=== PATIENT | male | born 1945 | race Caucasian/White ===

== ENCOUNTER → 2017-10-29 11:39 | Outpatient (CLI) | payer MEDICARE, SELFPAY | PROVIDERS: Family Provider Family Medicine; PCP Family Medicine; Visit Provider Physician Assistant Medical | DX: R07.9 Chest pain, unspecified (principal) | CPT/HCPCS: 36415; 84484 ==

== ENCOUNTER 2017-10-31 02:18 | Observation (INO) | payer MEDICARE, SELFPAY ==
[2017-10-31] VITALS (14 sets, daily range): BP systolic 115–173; BP diastolic 55–92; PULSE 42–85; RESP 14–16; TEMP 36.7–36.9; O2SAT 93–98; BMI 29.9; BMI 30.1
--- NOTE | 2017-10-31 02:36 | US_ITS ---
STUDY: ABDOMINAL ULTRASOUND - RIGHT UPPER QUADRANT REASON FOR VISIT: Male, 72 years old. .Normal pain. TECHNIQUE: Ultrasound evaluation of the right upper quadrant was performed with real-time and static fulton-scale imaging. TECHNICAL QUALITY: Adequate. COMPARISON: Report of renal ultrasound May 05, 2010. FINDINGS: Liver: The liver measures 16.3 cm. There is increased echogenicity consistent with mild fatty infiltration. The bile ducts are within normal limits. There is hepatic color flow. The direction of portal flow is hepatopetal. There is no demonstrated mass lesion. Gallbladder: Normal distended gallbladder from the images provided. The gallbladder wall measures 4 mm. There is a negative sonographic Lopez's sign. There is no pericholecystic fluid. There are no gallstones. Common Bile Duct (C.B.D.): The common bile duct measures 4 mm. Pancreas: Pancreas not well-visualized due to overlying bowel gas. Patient has not eaten for over 6 hours. Right Kidney: Normal size of the right kidney. The right kidney measures 12.4 cm. Normal renal cortex. The right cortex measures 1.4 cm. There is no demonstrated renal mass or cyst. There is no right hydronephrosis. US/Gallbladder IMPRESSION: Minimal gallbladder wall thickening otherwise normal gallbladder. Possible fatty liver. Pancreas not well visualized. Electronically Signed: Tera Barreto MD at 5:02 EDT , Service support ,
--- NOTE | 2017-10-31 02:37 | EKG12_ITS ---
Test Reason : CHEST/BACK PAIN Blood Pressure : / mmHG Vent. Rate : 051 BPM Atrial Rate : 051 BPM P-R Int : 184 ms QRS Dur : 104 ms QT Int : 436 ms P-R-T Axes : 014 042 009 degrees QTc Int : 401 ms Sinus bradycardia Otherwise normal ECG Confirmed by ANDRESSA KRUEGER, NICOLE ([id number]), web content editor AMINA LILLY ([id number] on 11/01/2017 2:56:18 PM Referred By: Nay Isbell Confirmed By:NICOLE CRISOSTOMO MD
--- NOTE | 2017-10-31 02:55 | RAD_ITS ---
STUDY: X-RAY CHEST REASON FOR EXAM: Male, 72 years old. Chest and abdominal pain. TECHNIQUE: PA and lateral chest. COMPARISON: December 02, 2014. FINDINGS: The lungs are clear and expanded. There is no demonstrated pleural abnormality. Normal size heart. Normal mediastinum and sonal. Normal visualized pulmonary arteries. Normal visualized aortic arch and descending thoracic aorta. Normal visualized thoracic spine. Normal visualized ribs, clavicles, and shoulders. There is no demonstrated abnormality of the visualized soft tissue structures of the upper abdomen. RAD/Chest PA and Lateral IMPRESSION: Stable chest, no acute cardiopulmonary disease. Electronically Signed: Tera Barreto MD at 3:52 EDT , Service support ,
[2017-10-31 03:15] LABS: Absolute Lymphocyte Count 1.13 X10^3/ul (0.83-4.51); Absolute Neutrophil Count 3.4 X10^3/uL (2.0-7.7); Basophil# 0.02 X10^3/uL; Basophil% 0.4 % (0-1); Eosinophil# 0.07 X10^3/uL; Eosinophils% 1.3 % (0-5); Hematocrit 43.2 % (40-54); Hemoglobin 14.4 g/dl (13.0-16.5); Lymphocyte # 1.13 X10^3/ul (4.0); Lymphocyte % 21.2 % (19-41); Mean Corp Hgb Conc 33.3 g/gl (32-36); Mean Corpuscular Hgb 28.8 pg (27.0-32.0); Mean Corpuscular Volume 86.4 fL (80-94); Mean Platelet Vol. 10.2 fl (6.2-12.0); Monocyte# 0.66 X10^3/uL; Monocyte% 12.4 % (0-10); Neutrophil # 3.43 X10^3/uL (2.7-7.7); Neutrophil % 64.3 % (47-70); Platelet Count 168 K/mm3 (150-450); RBC Distribution Width SD 43.6 fl (35.1-43.9); White Blood Count 5.3 K/mm3 (4.4-11.0)
[2017-10-31 03:21] LABS: POSITIVE COUNT NO; POSITIVE DIFFERENTIAL NO; POSITIVE MORPHOLOGY NO
[2017-10-31 03:29] LABS: ALB/GLOB Ratio 0.9 RATIO (0.9-2.4); AST(SGOT) 12 U/L (15-37); Alanine Aminotransfer ALT/SGPT 22 U/L (16-61); Albumin, Serum 3.2 g/dL (3.2-5.0); Alkaline Phosphatase 89 U/L (45-117); Anion Gap 8 (5-15); BUN 20 mg/dL (7-18); BUN/Creat Ratio 20.4 RATIO (10-20); Calcium,Total 8.1 mg/dL (8.5-10.1); Chloride 109 mmol/L (98-107); Creatinine, Serum 0.98 mg/dL (0.70-1.30); EST Glomerular Filtration Rate 80 mL/min (>60); Est Glom Filt Rate - Afr Amer 97 mL/min (>60); Estimated Creatinine Clearance 69.14 ml/min; Globulin 3.6 g/dL (2.2-4.2); Glucose 135 mg/dL (74-106); Lipase 323 U/L (73-393); Potassium 3.4 mmol/L (3.5-5.1); Protein, Total 6.8 g/dL (6.4-8.2); Sodium Level 143 mmol/L (136-145)
[2017-10-31] MEDS: Morphine 4 MG/ML Syringe IV (03:55)
[2017-10-31] MEDS: Ondansetron 4 MG/2 ML Vial IV (03:55)
--- NOTE | 2017-10-31 05:25 | ED.VISSUMM ---
- ER Visit Summary Date of Service: 10/31/17 Chief Complaint: Abdominal pain and chest pain History of Present Illness: The patient is a 72 M who presents with abdominal pain. Intermittently he has been having epigastric and right upper quadrant abdominal pain for about 1 week. 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 At that time he also mentioned bilateral neck pain and dyspnea on exertion. They were concerned that his pain may be due to cardiac ischemia. They had recommended that he be evaluated in the emergency department but the patient reviews actually checked her troponin and set up for an outpatient stress test. Tonight he notes 2 hours of severe epigastric and right upper quadrant and right lower chest pain. This radiates through to the back. He also complains of bilateral neck pain. He states that he does have some mild associated shortness of breath as well as nausea but no vomiting or diarrhea. She is concerned this may be related to his gallbladder. Physical Examination: Blood pressure 173/74. Vitals otherwise unremarkable Moist mucous membranes Heart regular rate and rhythm Lungs are clear Abdomen soft nondistended he does have some epigastric and right upper quadrant tenderness no guarding no rebound no Lopez's sign Alert Test Results: EKG shows sinus rhythm at a rate of 51. CBC BMP unremarkable. Hepatic function lipase and troponin all normal. Chest x-ray shows no acute process. Right upper quadrant ultrasound shows minimal gallbladder wall thickening otherwise normal. Emergency Department Course and Treatment: My clinical suspicion based on the description of patient's symptoms is that this is more likely related to gastrointestinal pathology. I did obtain laboratory studies and right upper quadrant ultrasound which shows minimal wall thickening but was otherwise unremarkable. This does not definitively show that the patient's symptoms are related to gallbladder pathology. Given that there was also concern for potential cardiac ischemia I felt the most appropriate management for further workup would be hospitalization and further diagnostic testing plus possible surgical and/or cardiology consultation. Patient to be discussed with the hospitalist and admitted. Treatment Plan: [] Disposition: Admit Impression: Abdominal pain Chest pain This note was generated with [employer] dictation software. It may contain incorrect words, spelling, and punctuation that were not noted in review of the chart prior to signing ED Disposition - Plan for ED Patient: Chief Complaint: Abd Pain Referrals: Stepan Mcgraw MD [Primary Care Provider] -
--- NOTE | 2017-10-31 05:29 | ED.DCSUM_ITS ---
- ER Visit Summary Date of Service: 10/31/17 Chief Complaint: Abdominal pain and chest pain History of Present Illness: The patient is a 72 M who presents with abdominal pain. Intermittently he has been having epigastric and right upper quadrant abdominal pain for about 1 week. 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 At that time he also mentioned bilateral neck pain and dyspnea on exertion. They were concerned that his pain may be due to cardiac ischemia. They had recommended that he be evaluated in the emergency department but the patient reviews actually checked her troponin and set up for an outpatient stress test. Tonight he notes 2 hours of severe epigastric and right upper quadrant and right lower chest pain. This radiates through to the back. He also complains of bilateral neck pain. He states that he does have some mild associated shortness of breath as well as nausea but no vomiting or diarrhea. She is concerned this may be related to his gallbladder. Physical Examination: Blood pressure 173/74. Vitals otherwise unremarkable Moist mucous membranes Heart regular rate and rhythm Lungs are clear Abdomen soft nondistended he does have some epigastric and right upper quadrant tenderness no guarding no rebound no Lopez's sign Alert Test Results: EKG shows sinus rhythm at a rate of 51. CBC BMP unremarkable. Hepatic function lipase and troponin all normal. Chest x-ray shows no acute process. Right upper quadrant ultrasound shows minimal gallbladder wall thickening otherwise normal. Emergency Department Course and Treatment: My clinical suspicion based on the description of patient's symptoms is that this is more likely related to gastrointestinal pathology. I did obtain laboratory studies and right upper quadrant ultrasound which shows minimal wall thickening but was otherwise unremarkable. This does not definitively show that the patient's symptoms are related to gallbladder pathology. Given that there was also concern for potential cardiac ischemia I felt the most appropriate management for further workup would be hospitalization and further diagnostic testing plus possible surgical and/or cardiology consultation. Patient to be discussed with the hospitalist and admitted. Treatment Plan: [] Disposition: Admit Impression: Abdominal pain Chest pain This note was generated with [employer] dictation software. It may contain incorrect words, spelling, and punctuation that were not noted in review of the chart prior to signing ED Disposition - Plan for ED Patient: Chief Complaint: Abd Pain Referrals: Stepan Mcgraw MD [Primary Care Provider] -
--- NOTE | 2017-10-31 06:04 | PCM.HP.STD ---
Problem List (1) Chest pain Status: Acute (2) Essential (primary) hypertension Status: Chronic (3) History of pericarditis Status: Chronic (4) Obstructive sleep apnea Status: Chronic (5) History of prostate surgery Status: Resolved History of Present Illness Date of Admission: 10/31/17 Chief Complaint: Chest pain The patient is a 72 year old male w/ h/o HTN. ANJANA and pericarditis admitted for chest pain. He had chest pain since Wednesday. He was evaluated by cards who recommended outpt stress test. The intensity and frequency of the pain have increased in the past few days. Pain would be in this epigastric area and would radiate to the back. Nothing made it better or worse. Last night the pain was so severe that he became nausea. Pain is episodic and would last for hours. Pain is associated with bilateral dull aching shoulder pain and a headache as well. He also has occasional right upper quadrant pain. No change in his diet. No increase stressors. No other symptoms. No palpitation or diaphoresis. Past Medical History Past Medical History (Chronic Problems): Chronic Problems (Last Updated 10/30/17 @ 11:49 by MICKY Colon) History of pericarditis (Chronic) Obstructive sleep apnea (Chronic) Essential (primary) hypertension (Chronic) Allergies amlodipine Allergy (Intermediate, Verified 10/29/17 10:39) rash and swelling in lower legs DRAGAN Inhibitors Adverse Reaction (Intermediate, Verified 10/29/17 10:39) Cough Home Medications: Ambulatory Orders Medication Instructions Recorded nebivolol 2.5 mg tablet 2.5 mg PO QDAY 06/02/17 ramipril 10 mg capsule 10 mg PO BID cap 06/02/17 triamterene 37.5 1 cap PO QDAY #90 cap 07/19/17 mg-hydrochlorothiazide 25 mg capsule doxazosin 2 mg tablet 4 mg PO QHS #180 tab 10/11/17 aspirin 81 mg chewable tablet 81 mg PO QDAY #30 tab 10/29/17 isosorbide mononitrate ER 30 mg 30 mg PO QAM #30 tab 10/29/17 tablet,extended release 24 hr Carvedilol 3.125 mg PO BID 10/31/17 Omeprazole 20 mg PO DAILY 10/31/17 Surgical History: no surgical history Psychiatric History: No pertinent psych hx Lives: Spouse/ Significant Other Smoking Status: Never smoker Alcohol: None Drugs: None Review of Systems Constitutional: Denies: Chills, Fever, Weight Change HEENT: Denies: Head Aches, Sinus Congestion, Sinus Drainage Cardiovascular: Denies: Chest Pain, Palpitations Respiratory: Denies: Cough, Shortness of breath at rest, Sputum production Gastrointestinal: Denies: Abdominal Pain, Nausea, Vomiting Genitourinary: Denies: Dysuria Musculoskeletal: Denies: Joint Pain, Joint Tenderness Skin: Denies: Rash, Wounds Neurological: Denies: Numbness, Tingling, Focal weakness Psychiatric: Denies: Anxiety, Depression, Homicidal Ideations, Suicidal Ideations Hematologic/ Lymphatic: Denies: Easy Bruising, Easy Bleeding VTE Information - Inpt Only VTE Present on Admission: No VTE Mechan Device Prophylaxis: SCD's VTE Pharm Prophylaxis ordered?: Yes Patient Problems: Active and Suspected Problems (Last Updated 10/30/17 @ 11:49 by MIKCY Colon) Chest pain (Acute) - Physical Exam General: Alert, Oriented x3, Cooperative HEENT: Atraumatic, PERRLA, EOMI, Normocephalic Neck: Supple, No JVD, Negative Carotid Bruits Lungs: Clear to auscultation, Normal air movement Cardiovascular: Regular rate, No murmurs Abdomen: Bowel Sounds Present, Soft, Non Tender Extremities: No edema, Capillary Refill Less than 3 Seconds Skin: No rashes, No breakdown Musculoskeletal: No Tenderness to Palpation of Joints or Extremities Neurological: Cranial nerves II-XII grossly intact Psych/Mental Status: Normal Affect, Appropriate Vital Signs Temp Pulse Resp BP Pulse Ox 98.5 F 85 16 161/92 H 96 10/31/17 02:18 10/31/17 05:36 10/31/17 05:36 10/31/17 05:36 10/31/17 05:36 Oxygen Delivery Method Room Air Weight: 92.1 kg Body Mass Index (BMI) 29.9 Laboratory Tests Past 24 Hrs 10/31/17 10/31/17 02:25 02:25 WBC 5.3 RBC 5.00 Hgb 14.4 Hct 43.2 MCV 86.4 MCH 28.8 MCHC 33.3 RDW 14.0 RDW Differential 43.6 Plt Count 168 MPV 10.2 Immature Gran % (Auto) 0.400 Neut % (Auto) 64.3 Lymph % (Auto) 21.2 [place] % (Auto) 12.4 H Eos % (Auto) 1.3 Baso % (Auto) 0.4 Absolute Neuts (auto) 3.4 Absolute Lymphs (auto) 1.13 Total Counted Not Reportable Sodium 143 Potassium 3.4 L Chloride 109 H Carbon Dioxide 26.0 Anion Gap 8 BUN 20 H Creatinine 0.98 Estim Creat Clear Calc 69.14 Est GFR (MDRD) Af Amer 97 Est GFR (MDRD) Non-Af 80 BUN/Creatinine Ratio 20.4 H Glucose 135 H Calcium 8.1 L Total Bilirubin 0.70 AST 12 L ALT 22 Alkaline Phosphatase 89 Troponin I < 0.015 Total Protein 6.8 Albumin 3.2 Globulin 3.6 Albumin/Globulin Ratio 0.9 Lipase 323 Assessment/Plan Active and Suspected Problems (Last Updated 10/30/17 @ 11:49 by MICKY Colon) Chest pain (Acute) 72 year old male w/ h/o HTN. ANJANA and pericarditis admitted for chest pain. 1) Chest pain: Heart score 4 EKG, first trop and chest xray unremarkable. Will resume home meds. Will also start lipitor. Will also start protonix concerning for possible GI pathology. Will get serial trops. Will get ECHO and stress test in AM. 2) HTN: SBP 150s. Resume home meds. Will consider increasing dose if still poorly controlled. Monitor. 3) Abdominal pain: Probably secondary to possible gallbladder given minimal thickening noted. Will start protonix. Lipase wnl. Supportive care. 4) Hypokalemia: K 3.4 Will give potassium chloride 40mEQ PO x1 Serial labs. 5) Prophylaxis: Lovenox
[2017-10-31] MEDS: Aspirin 81 MG TAB.CHEW PO (09:26)
[2017-10-31] MEDS: Ramipril 10 MG Capsule PO ×2 (09:26→21:27)
[2017-10-31] MEDS: Pantoprazole Sodium 40 MG Tablet PO (09:27)
[2017-10-31] MEDS: Isosorbide Mononitrate 30 MG Tablet PO (09:27)
[2017-10-31] MEDS: Triamterene 37.5MG/Hctz 25MG Capsule 1 CAP PO (09:27)
--- NOTE | 2017-10-31 11:19 | CT_ITS ---
STUDY: CT ABDOMEN WITH CONTRAST REASON FOR EXAM: Male, 72 years old. Epigastric pain RADIATION DOSAGE (If Supplied By Facility): CTDIvol = ( 17.22 ) mGy, DLP = ( 573.39 ) mGycm TECHNIQUE: Transaxial images were obtained from the lower chest to the upper pelvis without oral contrast. 100 ml of Isovue 300 contrast was administered. Sagittal and coronal images were reconstructed. Individualized dose optimization techniques were used for this CT. COMPARISON: Right upper quadrant ultrasound from the same day FINDINGS: There is minimal dependent atelectasis in both lung bases. There is no pleural effusion. The heart is normal in size. There is minimal pericardial fluid or thickening. The liver is unremarkable. There is mild enhancement of the gallbladder wall. The spleen is unremarkable. The pancreas is unremarkable. The adrenal glands are unremarkable. The right kidney is unremarkable. There is no dilatation of the collecting system in the right kidney. The left kidney is unremarkable. There is no dilatation of the collecting system in the left kidney. The stomach is unremarkable. There is mild wall thickening in the first portion of the duodenum. The visualized colon is unremarkable. The appendix is visualized and appears normal. There are minimal vascular calcifications. The inferior vena cava is unremarkable. The retroperitoneum is unremarkable. There is no free fluid in the abdomen. The soft tissues of the abdominal wall are unremarkable. There are moderate degenerative changes in the visualized spine. CT/Abdomen WITH IV Contrast IMPRESSION: Again seen is mild gallbladder wall inflammation. No stones are evident. There is no biliary ductal dilatation. A mild duodenitis cannot be excluded. There is no ascites, free air or significant lymphadenopathy. Electronically Signed: Carola Harris MD at 16:28 EDT Tel Direct: [phone], Service support ,
--- NOTE | 2017-10-31 14:35 | CON.PCM_ITS ---
Problem List (1) Chest pain Status: Acute (2) History of pericarditis Status: Chronic (3) Bradycardia Status: Chronic (4) Essential (primary) hypertension Status: Chronic (5) Gallbladder disease Status: Acute Reason for Consult Date of Consultation: 10/31/17 History of Present Illness: The patient is a 72 year old white male with a past cardiovascular history of pericarditis, bradycardia, hypertension, who presents for evaluation of chest pain with subsequent findings of gallbladder related disease. The patient states that for quite some time now he has been having chest pain . He points to his epigastric and right upper quadrant area. He states this pain can radiate to his shoulders, back, and other areas of the abdomen. Yesterday he had increased pain/discomfort as well as nausea. He elected to present to the emergency department for further evaluation and care. He has recently been undergoing outpatient cardiovascular evaluation for his chest pain . On 10/29/2017 he had an outpatient cardiovascular visit with an outpatient troponin I level which was negative and an outpatient ECG which demonstrated his chronic sinus bradycardia with no acute changes. He has denied orthopnea, worsening peripheral pitting edema, near syncope or syncope. Has undergone previous noninvasive cardiovascular evaluation in the past. On 03/2015 he had a transthoracic echocardiogram performed. His left ventricle was normal with an LVEF of 65% with mild concentric LVH and mild left atrial enlargement with trivial MR and trivial TR and aortic valve sclerosis. He also underwent further evaluation and care on that day with an exercise tolerance test/imaging study. At that time he exercised on a Kane protocol for 12 minutes achieving 90% predicted maximal heart rate with a peak blood pressure 162/84 mmHg and a peak metabolic equivalent of 13 metabolic equivalents. He had an occasional PVC during exercise. He had no obvious ECG changes. He had no obvious chest discomfort. His nuclear images demonstrated no myocardial perfusion changes diagnostic for previous CA or stress-induced myocardial ischemia. His gated LVEF was 61%. He has undergone further evaluation during this hospitalization with cardiac enzymes which have been negative. His ECG demonstrated sinus bradycardia. He had a right upper quadrant ultrasound which demonstrated gallbladder thickening. Past Medical History Allergies/Adverse Reactions: Allergies amlodipine Allergy (Intermediate, Verified 10/29/17 10:39) rash and swelling in lower legs DRAGAN Inhibitors Adverse Reaction (Intermediate, Verified 10/29/17 10:39) Cough Home Medications: Ambulatory Orders Medication Instructions Recorded nebivolol 2.5 mg tablet 2.5 mg PO QDAY 06/02/17 ramipril 10 mg capsule 10 mg PO BID cap 06/02/17 doxazosin 2 mg tablet 4 mg PO QHS #180 tab 10/11/17 aspirin 81 mg chewable tablet 81 mg PO QDAY #30 tab 10/29/17 isosorbide mononitrate ER 30 mg 30 mg PO QAM #30 tab 10/29/17 tablet,extended release 24 hr Carvedilol 3.125 mg PO BID 10/31/17 Multiple Vitamins 1 tablet PO DAILY 10/31/17 Omeprazole 20 mg PO DAILY 10/31/17 Triamterene-Hctz 37.5-25 mg Tb 37.5 mg PO DAILY 10/31/17 Past Medical History (Chronic Problems): Chronic Problems (Last Updated 10/30/17 @ 11:49 by MICKY Colon) Bradycardia (Chronic) History of pericarditis (Chronic) Obstructive sleep apnea (Chronic) Essential (primary) hypertension (Chronic) Surgical History: no surgical history Psychiatric History: No pertinent psych hx Lives: Spouse/ Significant Other Smoking Status: Never smoker Alcohol: None Drugs: None Review of Systems - Review of Systems General: Denies: Fever, Night Sweats, Fatigue Cardiovascular: Reports: Chest Discomfort. Denies: Shortness of Breath, Orthopnea, PND, Peripheral Edema, Palpitations, Lightheadedness, Dizziness, Near Syncope, Syncope Respiratory: Denies: Cough, Sputum Production, Hemoptysis Gastrointestinal: Reports: Epigastric Discomfort, Abdominal Discomfort. Denies : Hematemesis, Hematochezia, Melena Genitourinary: Denies: Dysuria, Hematuria Skin: Denies: Rash Subjectve: This is a 72-year-old white male who appears to be resting comfortably in no acute distress. Objective: Vital Signs Temp Pulse Resp BP Pulse Ox 98.2 F 54 L 16 167/76 H 96 10/31/17 09:23 10/31/17 10:57 10/31/17 09:23 10/31/17 09:23 10/31/17 09:23 Oxygen Delivery Method Room Air Weight: 198 lb 3.129 oz Body Mass Index (BMI) 30.1 Intake and Output for Last 24 Hours 10/29/17 10/30/17 10/31/17 23:59 23:59 23:59 Intake Total 360 / 360 Balance 360 / 360 General: Awake, Alert, Oriented x 3, Cooperative, No Acute Distress HEENT: Atraumatic, Normocephalic, PERRL, EOMI, Sclera Non Icteric Oral: Moist Mucosa Neck: Supple, Good ROM, No JVD Lungs: Clear to auscultation Cardiovascular: Regular Rhythm, Normal S1, Normal S2 Vascular: No Carotid Bruits Abdomen: Bowel Sounds Present, Soft, - - Positive epigastric/right upper quadrant tenderness to palpation Extremities: No Cyanosis, No Clubbing, No edema Neurological: No Focal Motor or Sensory Deficit 10/31/17 07:10: Troponin I < 0.015 10/31/17 09:55: Troponin I < 0.015 10/31/17 13:25: Troponin I < 0.015 Rhythm: Sinus rhythm/sinus bradycardia EKG: Sinus bradycardia ECHO: As noted above Stress Test: As noted above CXR: Preliminary evaluation: No acute cardiopulmonary disease process appreciated Assessment/Plan 1. Chest pain: Atypical The patient does have chest discomfort. However his chest discomfort appears to be somewhat more epigastric and right upper quadrant with radiation to a variety of areas including his shoulder, back, and additional abdominal areas. At the present time his cardiovascular evaluation has been negative with his repetitive troponin I levels. His ECG is demonstrated no acute changes. He will be further evaluated with an upcoming exercise tolerance test/imaging study to evaluate for any obvious evidence of ongoing myocardial ischemia that would be contributing to his symptoms, etc. In the interim he can continue medical management as deemed appropriate taken into consideration his heart rate and blood pressure. 2. Pericarditis: History of He has had pericarditis in the past. His presentation at this time does not appear to be classic for pericarditis. Does not have obvious objective findings suspicious for underlying pericarditis. Continue to be monitored for any changes. 3. Bradycardia The patient does have underlying bradycardia. His medications can be adjusted in attempt to modulate his heart rate. 4. Hypertension Blood pressure has been challenging to control. He has been on multiple medications attempting his bring his blood pressure under better control and avoid issues with his underlying bradycardia, etc. At this point in time it might not be unreasonable to attempt a medication which he has not been on such as minoxidil. He would need to be monitored for any volume retention and need for diuretic therapy, etc. 5. Gallbladder disease She does have underlying epigastric abdominal discomfort and does have an abnormal right upper quadrant ultrasound it would not be unreasonable to obtain an abdominal/pelvic CT scan for further evaluation. He may eventually need general surgery consultation with respect to his gallbladder related issues, symptoms, etc. Comment: The above was discussed with the patient and Dr. Rodriguez. This note was generated with [employer] dictation software. It may contain incorrect words, spelling, and punctuation that were not noted in checking the note before signing.
--- NOTE | 2017-10-31 14:53 | PCM.HOSP.N ---
Hospitalist Note Seen and examined. H&P, labs, vitals, and previous test and medications reviewed. Discussed with the elephant keeper, Dr. 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 He was evaluated by his cardiology, certified nurse practitioner on 10/29 for chest pain. The patient was advised troponin which was negative. The patient describes more epigastric pain which radiated across right upper quadrant abdominal wall to the back and right shoulder. In ED, right upper quadrant sonogram was done and shows no gallstones, no pericholecystic fluid but GB wall thickening 4 mm otherwise negative. Pancreas could not be evaluated on ultrasound but lipase was normal. He had echo done in December 2014 which showed normal EF with 65% with mild concentric LVH, mild LAE with trivial MR and trivial TR and aortic valve stenosis. His echo at that time was also negative with EF 61%. He has history of pericarditis in the past but this time, his pain is not consistent with pericarditis. This time EKG shows sinus bradycardia. He is on 2 beta jose david by systolic and Coreg. His epigastric pain is not related with meal or exertion and is not associated with shortness of breath, dizziness, palpitation. Based on the above finding and after discussion with Dr. Gomes, it was decided abdomen CT with IV contrast. On exam: Mild tenderness in epigastrium but no significant tenderness over right upper quadrant or back. Guarding or rigidity. His blood pressure is uncontrolled. Advised minoxidil. Stress test and echo is ordered for Wednesday. Continue Coreg. Bystolic discontinued. Dyazide on hold because of CT abdomen with IV contrast.
--- NOTE | 2017-10-31 15:03 | CCHN_ITS ---
Hospitalist Note Seen and examined. H&P, labs, vitals, and previous test and medications reviewed. Discussed with the basket hand weaver, Dr. 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 He was evaluated by his cardiology, certified nurse practitioner on 10/29 for chest pain. The patient was advised troponin which was negative. The patient describes more epigastric pain which radiated across right upper quadrant abdominal wall to the back and right shoulder. In ED, right upper quadrant sonogram was done and shows no gallstones, no pericholecystic fluid but GB wall thickening 4 mm otherwise negative. Pancreas could not be evaluated on ultrasound but lipase was normal. He had echo done in December 2014 which showed normal EF with 65% with mild concentric LVH, mild LAE with trivial MR and trivial TR and aortic valve stenosis. His echo at that time was also negative with EF 61%. He has history of pericarditis in the past but this time, his pain is not consistent with pericarditis. This time EKG shows sinus bradycardia. He is on 2 beta jose david by systolic and Coreg. His epigastric pain is not related with meal or exertion and is not associated with shortness of breath, dizziness, palpitation. Based on the above finding and after discussion with Dr. Gomes, it was decided abdomen CT with IV contrast. On exam: Mild tenderness in epigastrium but no significant tenderness over right upper quadrant or back. Guarding or rigidity. His blood pressure is uncontrolled. Advised minoxidil. Stress test and echo is ordered for Wednesday. Continue Coreg. Bystolic discontinued. Dyazide on hold because of CT abdomen with IV contrast.
[2017-10-31] MEDS: Minoxidil 2.5 MG Tablet PO (16:04)
[2017-10-31] MEDS: Doxazosin 4 MG Tablet PO (21:27)
[2017-10-31] MEDS: Atorvastatin Calcium 40 MG Tablet PO (21:27)
[2017-11-01] VITALS (7 sets, daily range): BP systolic 119–124; BP diastolic 59–72; PULSE 47–87; RESP 16–18; TEMP 36.4–36.7; O2SAT 96–97
[2017-11-01] MEDS: Aspirin 81 MG TAB.CHEW PO (05:32)
[2017-11-01] MEDS: Ramipril 10 MG Capsule PO (05:32)
--- NOTE | 2017-11-01 05:55 | EKG12_ITS ---
Test Reason : AM EKG Blood Pressure : / mmHG Vent. Rate : 053 BPM Atrial Rate : 053 BPM P-R Int : 200 ms QRS Dur : 092 ms QT Int : 436 ms P-R-T Axes : 040 067 029 degrees QTc Int : 409 ms Sinus bradycardia with Premature atrial complexes Otherwise normal ECG When compared with ECG of 31-OCT-2017 06:42, MANUAL COMPARISON REQUIRED, DATA IS UNCONFIRMED Confirmed by ANDRESSA KRUEGER, NICOLE ([id number]), television news video editor AMINA LILLY ([id number]) on 11/02/2017 3:19:41 PM Referred By: Nay Isbell Confirmed By:NICOLE CRISOSTOMO MD
--- NOTE | 2017-11-01 05:55 | ECHOD_ITS ---
Reason For Study: chest pain Procedure This was a 2D Doppler, Color Flow transthoracic echocardiogram. The exam was of adequate technical quality. Exam performed in department. Left Ventricle Normal LV size. Mild concentric left ventricular hypertrophy. Left ventricular systolic function is normal. The estimated ejection fraction is 65 %. There is evidence of diastolic dysfunction. No regional wall motion abnormalities noted. Right Ventricle Normal RV size. Normal systolic function. Atria The left atrium is mildly enlarged. The right atrium is mildly enlarged. No doppler evidence for ASD. Mitral Valve There is no mitral annular calcification. Normal mitral valve. Trivial mitral valve insufficiency. Tricuspid Valve Normal tricuspid valve. Trivial tricuspid valve insufficiency. Right ventricular systolic pressure estimated to be 35 mmHg. Aortic Valve Trisinus/trileaflet aortic valve. Mild diffuse aortic valve thickening. Mild focal aortic valve calcification. Aortic sclerosis, no stenosis. Pulmonic Valve The pulmonic valve is not well visualized. Trivial pulmonic valve insufficiency. Great Vessels Normal sized aortic root. Pericardium/Pleural No pericardial effusion. MMode/2D Measurements & Calculations LVIDd: 5.2 cm IVSd: 1.3 cm Ao root diam: 3.1 cm LVIDs: 3.3 cm LVPWd: 1.3 cm LA dimension: 4.1 cm RVDd: 3.5 cm FS: 37.0 % LAV(MOD-bp): 84.2 ml LA A4 area: 23.2 cm2 RA A4 area: 22.0 cm2 LAV(MOD-bp) Indexed: 41.2 ml/m2 LAV(MOD-sp2): 81.3 ml LAV(MOD-sp4): 76.9 ml Doppler Measurements & Calculations MV E max jose elias: 75.9 cm/sec Lat Peak E' Jose Elias: 7.6 cm/sec Med Peak E' Jose Elias: 5.1 cm/sec MV A max jose elias: 43.1 cm/sec E/E' lat: 10.1 E/E' med: 15.0 MV E/A: 1.8 Ao V2 max: 136.1 cm/sec LV V1 max: 119.0 cm/sec PA V2 max: 84.6 cm/sec Ao max P.4 mmHg LV V1 max P.7 mmHg TR max jose elias: 283.0 cm/sec TR max P.2 mmHg Interpretation Summary Left ventricular systolic function is normal. The estimated ejection fraction is 65 %. Mild concentric left ventricular hypertrophy. The left atrium is mildly enlarged. The right atrium is mildly enlarged. Trivial mitral valve insufficiency. Trivial tricuspid valve insufficiency. Aortic sclerosis, no stenosis. Trivial pulmonic valve insufficiency. Right ventricular systolic pressure estimated to be 35 mmHg. There is evidence of diastolic dysfunction. Ordering Physician: Addy Carrera Referring Physician: Nay Isbell Performed By: Trinity Black RDCS, RVT
[2017-11-01 06:14] LABS: International Normalized Ratio 1.1; Prothrombin Time (Protime)PT. 13.8 SECONDS (11.7-14.9)
[2017-11-01 06:15] LABS: Hematocrit 42.8 % (40-54); Hemoglobin 14.5 g/dl (13.0-16.5); Mean Corp Hgb Conc 33.9 g/gl (32-36); Mean Corpuscular Hgb 29.3 pg (27.0-32.0); Mean Corpuscular Volume 86.5 fL (80-94); Mean Platelet Vol. 10.4 fl (6.2-12.0); Partial Thromboplast Time 30.8 Seconds (24.1-36.2); Platelet Count 150 K/mm3 (150-450); RBC Distribution Width CV 13.9 % (11.6-14.6); RBC Distribution Width SD 43.4 fl (35.1-43.9); Red Blood Count 4.95 M/mm3 (4.6-6.2); White Blood Count 5.8 K/mm3 (4.4-11.0)
[2017-11-01 06:45] LABS: ALB/GLOB Ratio 0.9 RATIO (0.9-2.4); AST(SGOT) 17 U/L (15-37); Alanine Aminotransfer ALT/SGPT 21 U/L (16-61); Albumin, Serum 3.1 g/dL (3.2-5.0); Alkaline Phosphatase 78 U/L (45-117); Anion Gap 8 (5-15); BUN 17 mg/dL (7-18); Calcium,Total 8.2 mg/dL (8.5-10.1); Chloride 108 mmol/L (98-107); Cholesterol 132 mg/dL (200); EST Glomerular Filtration Rate 78 mL/min (>60); Est Glom Filt Rate - Afr Amer 95 mL/min (>60); Estimated Creatinine Clearance 65.55 ml/min; Globulin 3.6 g/dL (2.2-4.2); Glucose 135 mg/dL (74-106); High Density Lipoprotein 31 mg/dL; Protein, Total 6.7 g/dL (6.4-8.2); Sodium Level 141 mmol/L (136-145); Thyroid Stim Hormone (TSH) 2.27 uIU/mL (0.358-3.74); Triglycerides 133 mg/dL; Very Low Density Lipoprotein 27 mg/dL (5-40)
[2017-11-01 06:56] LABS: Scan Indicated on CBC? Y/N NO
[2017-11-01] MEDS: HYDROcodone Bitartrate/Apap 5/325 Tablet PO ×2 (08:32→13:01)
--- NOTE | 2017-11-01 11:04 | CT_ITS ---
STUDY: CTA CHEST REASON FOR EXAM: Male, 72 years old. Chest pain. RADIATION DOSAGE (If Supplied By Facility): CTDIvol = ( 16.85 ) mGy, DLP = ( 489.25 ) mGycm TECHNIQUE: The examination was performed with the intravenous administration of 100 ml of Isovue 370 contrast material. Post-processing of the angiographic images was performed, with multiplanar reformation and 3D reconstruction. Individualized dose optimization techniques were used for this CT. COMPARISON: None. FINDINGS: Normal enhancement of the main pulmonary artery and right and left pulmonary arteries. Normal enhancement of the bilateral peripheral pulmonary arteries. There is no demonstrated pulmonary embolism. Normal thoracic aorta and visualized great vessels. There is no demonstrated aortic dissection. There are calcifications of the coronary arteries. Normal mediastinum. Normal hilar regions. Normal visualized trachea and bronchi. The lungs are well expanded. Mild increased markings in the superior segment of the right lower lobe. Minimal bilateral pleural effusions. Normal chest wall structures. There are degenerative changes of thoracic spine. Small hiatal hernia. CT/CTA Chest W/WO Contrast IMPRESSION: Minimal increased markings in the superior segment of the right lower lobe. Electronically Signed: Filiberto Bui MD at 12:22 EDT Tel [phone], Service support ,
[2017-11-01] MEDS: Minoxidil 2.5 MG Tablet PO (12:29)
[2017-11-01] MEDS: Pantoprazole Sodium 40 MG Tablet PO (12:29)
[2017-11-01] MEDS: Carvedilol 3.125 MG TABLET PO (12:29)
[2017-11-01] MEDS: Isosorbide Mononitrate 30 MG Tablet PO (12:29)
--- NOTE | 2017-11-01 12:48 | STRESSREP ---
Stress Test Report Exercise myocardial perfusion stress test. 72-year-old male with a history of atypical chest pain. Stress protocol: Resting EKG demonstrates sinus bradycardia cardia with a rate of 52 bpm normal intervals and noted resting blood pressure is 142/84 mmHg. The patient exercised according to regular Kane protocol for total duration of 10 minutes completing 1 minute into stage IV of the Kane protocol. The maximum heart rate attained was 136 bpm which was 91% of maximum predicted heart rate the maximum workload attained was 11.7 metabolic equivalents. At rest there were no ST or T-wave changes noted suggest ischemia peak exercise upsloping ST changes only were noted we did not meet the criteria for ischemia. No clinical angina was noted. At peak exercise upsloping ST changes were noted with no meet the criteria for ischemia. Resting blood pressure was 142/84 with a peak blood pressure 170/98. Myocardial perfusion protocol. 11.8 mCi of technetium 99m sestamibi was injected at rest. The patient exercised according to regular Kane protocol for total duration of 10 minutes attaining 91% of maximum predicted heart rate at peak exercise 35.7 mCi of technetium 99m sestamibi was injected stress images were obtained stress and rest images were reconstructed and compared in the short axis vertical long and horizontal long axis. Gated images were also obtained pre- Perfusion SPECT analysis: Review of the stress images demonstrate normal uptake of tracer noted in all areas of the myocardium. The resting images similarly demonstrate normal uptake of tracer noted in all areas of the myocardium. No reversibility is noted suggest ischemia and no previous infarct is noted. Gated SPECT analysis: The gated ejection fraction is noted to be 70%. No wall motion abnormalities are present. Conclusion: Normal exercise myocardial perfusion stress test at a high workload. No arrhythmias noted. Excellent functional capacity. No clinical angina present.
--- NOTE | 2017-11-01 13:59 | PCM.DC ---
- Discharge Diagnoses Current Active Problems: Current Active and Chronic Problems (Last Updated 10/30/17 @ 11:49 by MICKY Colon) Chest pain (Acute) Bradycardia (Chronic) Gallbladder disease (Acute) You will use the following diet at home:: Cardiac, Other - avoid greasy/fatty foods Your food should be the consistency of: Regular Your liquids should be the consistency of: Regular/Thin Discharge Activity: Return to Normal Activity Additional Instructions: HIDA scan here in 2 days. Allergies/Adverse Reactions: Allergies amlodipine Allergy (Intermediate, Verified 10/29/17 10:39) rash and swelling in lower legs DRAGAN Inhibitors Adverse Reaction (Intermediate, Verified 10/29/17 10:39) Cough Medications to take at Discharge ramipril 10 mg capsule 10 mg PO BID cap 06/02/17 doxazosin 2 mg tablet 4 mg PO QHS #180 tab 10/11/17 aspirin 81 mg chewable tablet 81 mg PO QDAY #30 tab 10/29/17 isosorbide mononitrate ER 30 mg tablet,extended release 24 hr 30 mg PO QAM #30 tab 10/29/17 Carvedilol 3.125 mg PO BID 10/31/17 Multiple Vitamins 1 tablet PO DAILY 10/31/17 Omeprazole 20 mg PO DAILY 10/31/17 Atorvastatin Calcium 10 mg PO DAILY #30 tablet 11/01/17 Minoxidil [Loniten] 2.5 mg PO DAILY #30 tab 11/01/17 The following prescriptions were given: Atorvastatin Calcium 10 mg PO DAILY #30 tablet Minoxidil [Loniten] 2.5 mg PO DAILY #30 tab Orders to be completed after discharge: Hepatobilliary Img w/Pharm Int [NM] Time Frame: 2 Days, Location: None Selected Primary Care Physician: Stepan Mcgraw MD [Primary Care Provider] - Please follow up with your Primary Care Physician in: 1-2 weeks Please Follow Up With: Alejandro Gomes MD When: 2 weeks Proposed Discharge Date: 11/01/17
--- NOTE | 2017-11-01 14:01 | PCM.DC.SUM ---
<Jabier Peoples - Last Filed: 11/01/17 14:01> Discharge Date and Diagnosis - Problem List Patient Problems: Active and Suspected Problems (Last Updated 10/30/17 @ 11:49 by MICKY Colon) Chest pain (Acute) Gallbladder disease (Acute) Date of Admission: 10/31/17 Date of Discharge: 11/01/17 - Primary Discharge Diagnosis Active and Suspected Problems (Last Updated 10/30/17 @ 11:49 by MICKY Colon) Chest pain (Acute) - musculoskeletal Gallbladder disease (Acute) HTN Bradycardia 2/2 polypharmacy ANJANA Hx prostate CA - Secondary Discharge Diagnosis Chronic Problems (Last Updated 10/30/17 @ 11:49 by MICKY Colon) Bradycardia (Chronic) History of pericarditis (Chronic) Obstructive sleep apnea (Chronic) Essential (primary) hypertension (Chronic) Hospital Course and Treatment Imaging Results: US/Gallbladder IMPRESSION: Minimal gallbladder wall thickening otherwise normal gallbladder. Possible fatty liver. Pancreas not well visualized. RAD/Chest PA and Lateral IMPRESSION: Stable chest, no acute cardiopulmonary disease. CT/Abdomen WITH IV Contrast IMPRESSION: Again seen is mild gallbladder wall inflammation. No stones are evident. There is no biliary ductal dilatation. A mild duodenitis cannot be excluded. There is no ascites, free air or significant lymphadenopathy. Echo: Interpretation Summary Left ventricular systolic function is normal. The estimated ejection fraction is 65 %. Mild concentric left ventricular hypertrophy. The left atrium is mildly enlarged. The right atrium is mildly enlarged. Trivial mitral valve insufficiency. Trivial tricuspid valve insufficiency. Aortic sclerosis, no stenosis. Trivial pulmonic valve insufficiency. Right ventricular systolic pressure estimated to be 35 mmHg. There is evidence of diastolic dysfunction. Conclusion: Normal exercise myocardial perfusion stress test at a high workload. No arrhythmias noted. Excellent functional capacity. No clinical angina present. Consults: [facility] - cardiology Operations: None Procedures: 2-D Echocardiogram, Stress test Summary of Care Provided: Physical exam on day of discharge: General: Resting comfortably NAD Psych: A/Ox3 normal affect HEENT: PEARRLA AT NC Neck: Supple NT CV: RRR no m/t/r/g/h Resp: CTA Abd: [id number] Soft NT no guarding or rigidity Ext: DP2+= no edema Skin: W/D normal turgor Lymph/Heme: No active bleeding or adenopathy Neuro: CN2-12 intact Hospital course: The patient is a 72 year old M with a history of hypertension, prostate cancer in remission, sleep apnea, pericarditis, who presented to the emergency room complaining of right upper quadrant epigastric possibly lower chest pain, with radiation into the back and the right subscapular area. He had a negative chest x-ray, EKG, troponin. He was admitted for concerns for chest pain of cardiac etiology. No events on telemetry, negative stress test, echocardiogram was unremarkable. His symptoms have been going on for about 3 weeks and he did have right upper quadrant epigastric pain radiating to the back, mild right upper quadrant tenderness, and loose stools so there is a concern whether this could be from his gallbladder. I was also concerned this could possibly represent a PE especially given his CA hx. CTA of the chest was done and was negative. Gallbladder ultrasound showed some possible gallbladder wall thickening. A CT of the abdomen showed mild gallbladder wall thickening. We felt that a HIDA scan was indicated, however due to his stress test he could not have one for 48 hours. Patient was in stable condition and comfortable so we advised that he come back in 2 days for a HIDA scan to further assess his gallbladder, at that time he will need to be reevaluated depending on the findings. He was also noted to have some bradycardia at admission and was on both Coreg and Bystolic. Cardiology was consulted and felt that his Bystolic to be discontinued he would be maintained on Coreg only. His rates improved significantly. Given that he had no other findings for cardiac etiology he was discharged home in stable condition. Please follow-up with your PCP, and with cardiology, and please return to the hospital in 2 days for a HIDA scan. This patient was seen by Jabier Peoples PA-C under the supervision of Doctor De Los Santos. [] Discharge Diet: Low fat/ Low Cholesterol, 2000 mg Sodium Diet, - - avoid greasy/fatty foods Discharge Activity: Return to Normal Activity Home Medications: Medications to take at Discharge ramipril 10 mg capsule 10 mg PO BID cap 06/02/17 doxazosin 2 mg tablet 4 mg PO QHS #180 tab 10/11/17 aspirin 81 mg chewable tablet 81 mg PO QDAY #30 tab 10/29/17 isosorbide mononitrate ER 30 mg tablet,extended release 24 hr 30 mg PO QAM #30 tab 10/29/17 Carvedilol 3.125 mg PO BID 10/31/17 Multiple Vitamins 1 tablet PO DAILY 10/31/17 Omeprazole 20 mg PO DAILY 10/31/17 Atorvastatin Calcium 10 mg PO DAILY #30 tab 11/01/17 Minoxidil [Loniten] 2.5 mg PO DAILY #30 tab 11/01/17 Following Prescrptions Were Given to Patient: Atorvastatin Calcium 10 mg PO DAILY #30 tab Minoxidil [Loniten] 2.5 mg PO DAILY #30 tab Other Amb Orders: Hepatobilliary Img w/Pharm Int [NM] Time Frame: 2 Days, Location: None Selected Primary Care Physician: Stepan Mcgraw MD [Primary Care Provider] - Please follow up with your Primary Care Physician in: 1-2 weeks Please Follow Up With: Alejandro Gomes MD When: 2 weeks Additional Instructions: return in 2 days for HIDA scan Disposition: Home Minutes spent on discharge:: 35 Patient Condition:: Stable Medical Necessity - Tobacco Use Smoking Status: Never smoker Meaningful Use Info Meaningful Use Diagnoses (Choose all that apply): None applicable <Edu De Los Santos - Last Filed: 11/01/17 15:49> Discharge Date and Diagnosis - Primary Discharge Diagnosis Active and Suspected Problems (Last Updated 10/30/17 @ 11:49 by MICKY Colon) Chest pain (Acute) Gallbladder disease (Acute) - Secondary Discharge Diagnosis Chronic Problems (Last Updated 10/30/17 @ 11:49 by MICKY Colon) Bradycardia (Chronic) History of pericarditis (Chronic) Obstructive sleep apnea (Chronic) Essential (primary) hypertension (Chronic) Hospital Course and Treatment Imaging Results: 11/01/17 11:04 CTA Chest W/WO Contrast [CT] Urgent Summary of Care Provided: The patient is a 72 year old M with past medical history significant for hypertension prostate CA in remission history of pericarditis who presented with chest pain. Patient was placed on a monitored bed did rule out SD with serial cardiac enzymes subsequently underwent a nuclear stress test which was negative for stress-induced ischemia. CT of the abdomen demonstrated mild gallbladder wall thickening plan was for patient to have undergone HIDA scan however with patient having no nuclear imaging to HIDA scan was scheduled for outpatient on 11/03/2017. Patient was seen and examined on the day of his discharge. His discharge instructions as well as med reconciliation reviewed. Hospital course as elicited above by Jabier Peoples Time spent on discharge process 35 minutes Code Visit OBSV E&M: 16030 Observation care discharge
--- NOTE | 2017-11-01 14:08 | DS.PCM_ITS ---
<Jabier Peoples - Last Filed: 11/01/17 14:01> Discharge Date and Diagnosis - Problem List Patient Problems: Active and Suspected Problems (Last Updated 10/30/17 @ 11:49 by MICKY Colon) Chest pain (Acute) Gallbladder disease (Acute) Date of Admission: 10/31/17 Date of Discharge: 11/01/17 - Primary Discharge Diagnosis Active and Suspected Problems (Last Updated 10/30/17 @ 11:49 by MICKY Colon) Chest pain (Acute) - musculoskeletal Gallbladder disease (Acute) HTN Bradycardia 2/2 polypharmacy ANJANA Hx prostate CA - Secondary Discharge Diagnosis Chronic Problems (Last Updated 10/30/17 @ 11:49 by MICKY Colon) Bradycardia (Chronic) History of pericarditis (Chronic) Obstructive sleep apnea (Chronic) Essential (primary) hypertension (Chronic) Hospital Course and Treatment Imaging Results: US/Gallbladder IMPRESSION: Minimal gallbladder wall thickening otherwise normal gallbladder. Possible fatty liver. Pancreas not well visualized. RAD/Chest PA and Lateral IMPRESSION: Stable chest, no acute cardiopulmonary disease. CT/Abdomen WITH IV Contrast IMPRESSION: Again seen is mild gallbladder wall inflammation. No stones are evident. There is no biliary ductal dilatation. A mild duodenitis cannot be excluded. There is no ascites, free air or significant lymphadenopathy. Echo: Interpretation Summary Left ventricular systolic function is normal. The estimated ejection fraction is 65 %. Mild concentric left ventricular hypertrophy. The left atrium is mildly enlarged. The right atrium is mildly enlarged. Trivial mitral valve insufficiency. Trivial tricuspid valve insufficiency. Aortic sclerosis, no stenosis. Trivial pulmonic valve insufficiency. Right ventricular systolic pressure estimated to be 35 mmHg. There is evidence of diastolic dysfunction. Conclusion: Normal exercise myocardial perfusion stress test at a high workload. No arrhythmias noted. Excellent functional capacity. No clinical angina present. Consults: [facility] - cardiology Operations: None Procedures: 2-D Echocardiogram, Stress test Summary of Care Provided: Physical exam on day of discharge: General: Resting comfortably NAD Psych: A/Ox3 normal affect HEENT: PEARRLA AT NC Neck: Supple NT CV: RRR no m/t/r/g/h Resp: CTA Abd: [id number] Soft NT no guarding or rigidity Ext: DP2+= no edema Skin: W/D normal turgor Lymph/Heme: No active bleeding or adenopathy Neuro: CN2-12 intact Hospital course: The patient is a 72 year old M with a history of hypertension, prostate cancer in remission, sleep apnea, pericarditis, who presented to the emergency room complaining of right upper quadrant epigastric possibly lower chest pain, with radiation into the back and the right subscapular area. He had a negative chest x-ray, EKG, troponin. He was admitted for concerns for chest pain of cardiac etiology. No events on telemetry, negative stress test, echocardiogram was unremarkable. His symptoms have been going on for about 3 weeks and he did have right upper quadrant epigastric pain radiating to the back, mild right upper quadrant tenderness, and loose stools so there is a concern whether this could be from his gallbladder. I was also concerned this could possibly represent a PE especially given his CA hx. CTA of the chest was done and was negative. Gallbladder ultrasound showed some possible gallbladder wall thickening. A CT of the abdomen showed mild gallbladder wall thickening. We felt that a HIDA scan was indicated, however due to his stress test he could not have one for 48 hours. Patient was in stable condition and comfortable so we advised that he come back in 2 days for a HIDA scan to further assess his gallbladder, at that time he will need to be reevaluated depending on the findings. He was also noted to have some bradycardia at admission and was on both Coreg and Bystolic. Cardiology was consulted and felt that his Bystolic to be discontinued he would be maintained on Coreg only. His rates improved significantly. Given that he had no other findings for cardiac etiology he was discharged home in stable condition. Please follow-up with your PCP, and with cardiology, and please return to the hospital in 2 days for a HIDA scan. This patient was seen by Jabier Peoples PA-C under the supervision of Doctor De Los Santos. [] Discharge Diet: Low fat/ Low Cholesterol, 2000 mg Sodium Diet, - - avoid greasy/ fatty foods Discharge Activity: Return to Normal Activity Home Medications: Medications to take at Discharge ramipril 10 mg capsule 10 mg PO BID cap 06/02/17 doxazosin 2 mg tablet 4 mg PO QHS #180 tab 10/11/17 aspirin 81 mg chewable tablet 81 mg PO QDAY #30 tab 10/29/17 isosorbide mononitrate ER 30 mg tablet,extended release 24 hr 30 mg PO QAM #30 tab 10/29/17 Carvedilol 3.125 mg PO BID 10/31/17 Multiple Vitamins 1 tablet PO DAILY 10/31/17 Omeprazole 20 mg PO DAILY 10/31/17 Atorvastatin Calcium 10 mg PO DAILY #30 tab 11/01/17 Minoxidil [Loniten] 2.5 mg PO DAILY #30 tab 11/01/17 Following Prescrptions Were Given to Patient: Atorvastatin Calcium 10 mg PO DAILY #30 tab Minoxidil [Loniten] 2.5 mg PO DAILY #30 tab Other Amb Orders: Hepatobilliary Img w/Pharm Int [NM] Time Frame: 2 Days, Location: None Selected Primary Care Physician: Stepan Mcgraw MD [Primary Care Provider] - Please follow up with your Primary Care Physician in: 1-2 weeks Please Follow Up With: Alejandro Gomes MD When: 2 weeks Additional Instructions: return in 2 days for HIDA scan Disposition: Home Minutes spent on discharge:: 35 Patient Condition:: Stable Medical Necessity - Tobacco Use Smoking Status: Never smoker Meaningful Use Info Meaningful Use Diagnoses (Choose all that apply): None applicable <Edu De Los Santos - Last Filed: 11/01/17 15:49> Discharge Date and Diagnosis - Primary Discharge Diagnosis Active and Suspected Problems (Last Updated 10/30/17 @ 11:49 by MICKY Colon) Chest pain (Acute) Gallbladder disease (Acute) - Secondary Discharge Diagnosis Chronic Problems (Last Updated 10/30/17 @ 11:49 by MICKY Colon) Bradycardia (Chronic) History of pericarditis (Chronic) Obstructive sleep apnea (Chronic) Essential (primary) hypertension (Chronic) Hospital Course and Treatment Imaging Results: 11/01/17 11:04 CTA Chest W/WO Contrast [CT] Urgent Summary of Care Provided: The patient is a 72 year old M with past medical history significant for hypertension prostate CA in remission history of pericarditis who presented with chest pain. Patient was placed on a monitored bed did rule out NC with serial cardiac enzymes subsequently underwent a nuclear stress test which was negative for stress-induced ischemia. CT of the abdomen demonstrated mild gallbladder wall thickening plan was for patient to have undergone HIDA scan however with patient having no nuclear imaging to HIDA scan was scheduled for outpatient on 11/03/2017. Patient was seen and examined on the day of his discharge. His discharge instructions as well as med reconciliation reviewed. Hospital course as elicited above by Jabier Peoples Time spent on discharge process 35 minutes Code Visit OBSV E&M: [id number] Observation care discharge
--- NOTE | 2017-11-01 15:51 | PN.CARD_ITS ---
Subjectve: The patient was evaluated earlier today. He had no new complaints with respect to chest discomfort or difficulty breathing. Objective: Vital Signs Temp Pulse Resp BP Pulse Ox 98.0 F 74 18 119/72 96 11/01/17 10:30 11/01/17 11:13 11/01/17 10:30 11/01/17 10:30 11/01/17 10:30 Oxygen Delivery Method Room Air Weight: 198 lb 3.129 oz Body Mass Index (BMI) 30.1 Intake and Output for Last 24 Hours 10/30/17 10/31/17 11/01/17 23:59 23:59 23:59 Intake Total 1220 / 1220 60 / 60 Balance 1220 / 1220 60 / 60 General: Awake, Alert, Oriented x 3, Cooperative, No Acute Distress HEENT: Atraumatic, Normocephalic, PERRL, EOMI, Sclera Non Icteric Neck: Supple, Good ROM, No JVD Lungs: Clear to auscultation Cardiovascular: Regular Rhythm, Normal S1, Normal S2 Abdomen: Bowel Sounds Present, Soft, - - Tenderness over epigastric / RUQ area Extremities: No Cyanosis, No Clubbing, No edema Neurological: No Focal Motor or Sensory Deficit Psych/Mental Status: Appropriate, Normal Affect 11/01/17 05:34: WBC 5.8, RBC 4.95, Hgb 14.5, Hct 42.8, MCV 86.5, MCH 29.3, MCHC 33.9, RDW 13.9, RDW Differential 43.4, Plt Count 150, MPV 10.4 11/01/17 05:34: Sodium 141, Potassium 4.0, Chloride 108 H, Carbon Dioxide 25.0, Anion Gap 8, BUN 17, Creatinine 1.00, Est GFR (MDRD) Af Amer 95, Est GFR (MDRD) Non-Af 78, BUN/Creatinine Ratio 17.0, Glucose 135 H, Calcium 8.2 L, Total Bilirubin 0.70, Triglycerides 133, Cholesterol 132, LDL Cholesterol 74, VLDL Cholesterol 27, HDL Cholesterol 31 L 11/01/17 05:34: PT 13.8, INR 1.1, APTT 30.8 Rhythm: sinus rhythm / sinus bradycardia ECHO: please see official report Stress Test: please see official report Medical Necessity - Tobacco Use Smoking Status: Never smoker Assessment/Plan 1. Chest pain: Atypical The patient does have chest discomfort. However his chest discomfort appears to be somewhat more epigastric and right upper quadrant with radiation to a variety of areas including his shoulder, back, and additional abdominal areas. At the present time his cardiovascular evaluation has been negative with his repetitive troponin I levels. His ECG is demonstrated no acute changes. His echod/doppler demonstrates overall preserved LV wall motion / systolic function. His stress nuclear study was reported as abnormal. His abdominal / pelvic CT scan demonstrated concerns with respect to the duodenum and gallbladder. Thus, at the present time, it appears that he does not require cardiac catheterization. He should pursue an GI evaluation. 2. Pericarditis: History of He has had pericarditis in the past. His presentation at this time does not appear to be classic for pericarditis. D 3. Bradycardia The patient does have underlying bradycardia. His medications can be adjusted in attempt to modulate his heart rate. 4. Hypertension His beta jose david has been altered. He has also started minoxidil. His blood pressure appears somewhat improved. He will need to follow his BPs at home and as an outpatient. 5. Gallbladder disease Again, there are concerns that his gallbladder may be contributing to his symptoms/findings. He will need to pursue a GI evaluation. Comment: The above was discussed with the patient and members of the [facility] hospitalist staff. This note was generated with [employer] dictation software. It may contain incorrect words, spelling, and punctuation that were not noted in checking the note before signing.
== END 2017-11-01 14:00 | disposition home or self-care (01) ==
LOC: ED 06:14 → PCU 06:21
PROVIDERS: Internal Medicine; Admitting Provider Internal Medicine; Emergency Provider Emergency Medicine; Family Provider Family Medicine; PCP Family Medicine; Visit Provider Internal Medicine
DX: R07.89 Other chest pain (principal); K82.9 Disease of gallbladder, unspecified; I10 Essential (primary) hypertension; G47.33 Obstructive sleep apnea (adult) (pediatric); R00.1 Bradycardia, unspecified; M54.2 Cervicalgia; E87.6 Hypokalemia; R06.09 Other forms of dyspnea; Z85.46 Personal history of malignant neoplasm of prostate; Z79.899 Other long term (current) drug therapy; Z79.82 Long term (current) use of aspirin; I08.1 Rheumatic disorders of both mitral and tricuspid valves
CPT/HCPCS: 36415; 71046; 71275; 74160; 76705; 78452; 80053; 80061; 83690; 84443; 84484; 85025; 85027; 85610; 85730; 93005; 93017; 93306; 96374; 96375; 99218; 99284; A9500; Q9967; A4216; G0378; J2405; J2785

== ENCOUNTER → 2017-11-03 08:41 | Outpatient (CLI) | payer MEDICARE, SELFPAY ==
--- NOTE | 2017-11-03 08:47 | NM_ITS ---
CLINICAL: 72-year-old male with reported history of right upper quadrant abdominal pain. RADIONUCLIDE HEPATOBILIARY SCINTIGRAPHY COMPARISON: Abdominal ultrasound and CT of the abdomen reports 11/01/2017 FINDINGS: Following the intravenous administration of 5.1 mCi of 99m Tc Mebrofenin, hepatobiliary images reveal:. 1. Relatively prompt and homogeneous radiopharmaceutical concentration is noted by a normal sized liver. No parenchymal defects are identified. 2. Gallbladder activity is identified at 45 minutes post radiopharmaceutical administration. 3. Small intestinal tract is observed at 18 minutes following tracer injection. 4. Washout of the radiopharmaceutical by the hepatic parenchyma appears qualitatively normal. The patient was administered a fatty meal (8 ounces Boost). The post fatty meal ingestion gallbladder ejection fraction calculated at 60 minutes was noted to be 13.0 % (normal greater than 30%). MO/Hepatobilliary Img w/Pharm Int IMPRESSION: 1. ABNORMAL 99m Tc Mebrofenin hepatobiliary imaging examination with fatty meal ingestion. A. A gallbladder ejection fraction calculated to be less than 30% following the administration of an ingested fatty meal is consistent with the presence of functional hepatobiliary disease (gallbladder and/or sphincter of Oddi dyskinesia) and/or organic hepatobiliary disease (chronic acalculous cholecystitis and/or cystic duct syndrome) in patients with intermediate to high pretest probabilities of hepatobiliary illness. (Caren and Mil, J Nucl Med 43: 1603, 2002). Electronically Signed: Lisandro Torres DO at 10:31 EDT Tel , Service support ,
== END ==
PROVIDERS: Family Provider Family Medicine; PCP Family Medicine; Visit Provider Physician Assistant
DX: R10.9 Unspecified abdominal pain (principal)
CPT/HCPCS: 78227; A9537

== ENCOUNTER → 2017-11-05 12:46 | Outpatient (CLI) | payer MEDICARE, SELFPAY ==
[2017-11-05 13:39] LABS: Absolute Neutrophil Count 3.2 X10^3/uL (2.0-7.7); Basophil# 0.01 X10^3/uL; Basophil% 0.2 % (0-1); Eosinophil# 0.09 X10^3/uL; Hemoglobin 13.8 g/dl (13.0-16.5); Lymphocyte % 19.7 % (19-41); Mean Corp Hgb Conc 32.9 g/gl (32-36); Mean Corpuscular Hgb 28.3 pg (27.0-32.0); Mean Corpuscular Volume 86.1 fL (80-94); Monocyte% 8.7 % (0-10); Neutrophil # 3.18 X10^3/uL (2.7-7.7); Neutrophil % 69.4 % (47-70); POSITIVE COUNT NO; POSITIVE DIFFERENTIAL NO; POSITIVE MORPHOLOGY NO; Platelet Count 189 K/mm3 (150-450); RBC Distribution Width CV 13.7 % (11.6-14.6); Red Blood Count 4.88 M/mm3 (4.6-6.2); White Blood Count 4.6 K/mm3 (4.4-11.0)
[2017-11-05 13:57] LABS: ALB/GLOB Ratio 0.9 RATIO (0.9-2.4); AST(SGOT) 9 U/L (15-37); Alanine Aminotransfer ALT/SGPT 19 U/L (16-61); Albumin, Serum 3.2 g/dL (3.2-5.0); Alkaline Phosphatase 82 U/L (45-117); Anion Gap 5 (5-15); BUN 15 mg/dL (7-18); BUN/Creat Ratio 15.9 RATIO (10-20); Calcium,Total 8.1 mg/dL (8.5-10.1); Chloride 110 mmol/L (98-107); Creatinine, Serum 0.94 mg/dL (0.70-1.30); EST Glomerular Filtration Rate 84 mL/min (>60); Est Glom Filt Rate - Afr Amer 101 mL/min (>60); Globulin 3.6 g/dL (2.2-4.2); Glucose 167 mg/dL (74-106); Protein, Total 6.8 g/dL (6.4-8.2); Sodium Level 144 mmol/L (136-145)
== END ==
PROVIDERS: Family Provider Family Medicine; PCP Family Medicine; Visit Provider Surgery
DX: R10.9 Unspecified abdominal pain (principal)
CPT/HCPCS: 36415; 80053; 85025

== ENCOUNTER 2017-11-05 15:11 | Observation (INO) | payer MEDICARE, SELFPAY ==
[2017-11-05 15:19] VITALS: BMI 29.4
[2017-11-05 15:29] VITALS: BP 133/75; PULSE 50; RESP 16; TEMP 36.4; O2SAT 96
[2017-11-05] MEDS: 0.9% NaCl Peripheral Flush Adult/Peds IV ×2 (16:17→22:27)
[2017-11-05] MEDS: HYDROmorphone 1 MG/ML Syringe IV ×2 (16:17→22:26)
[2017-11-05] MEDS: Dextrose 5%-Lactated Ringers 1,000 ML 70 ML IV (16:17)
[2017-11-05 20:03] VITALS: BP 166/76; PULSE 50; RESP 16; TEMP 36.7; O2SAT 98
[2017-11-05] MEDS: Atorvastatin Calcium 10 MG Tablet PO (22:26)
[2017-11-05] MEDS: Doxazosin 4 MG Tablet PO (22:26)
[2017-11-05] MEDS: Carvedilol 3.125 MG TABLET PO (22:26)
[2017-11-06] VITALS (11 sets, daily range): BP systolic 139–190; BP diastolic 66–107; PULSE 51–90; RESP 16–20; TEMP 36.4–37.4; O2SAT 60–97; BMI 29.4; BMI 29.5
[2017-11-06] MEDS: 0.9% NaCl Peripheral Flush Adult/Peds IV ×2 (05:26→15:58)
[2017-11-06] MEDS: HYDROmorphone 1 MG/ML Syringe IV ×3 (05:26→15:58)
[2017-11-06] MEDS: Dextrose 5%-Lactated Ringers 1,000 ML 70 ML IV (05:31)
[2017-11-06] MEDS: Minoxidil 2.5 MG Tablet PO (07:56)
--- NOTE | 2017-11-06 09:45 | NURSING ---
REPORT CALLED TO TONYA PASCUAL INFORMED HER THAT PO MED LONITEN WAS GIVEN AT 0739, AND IMDUR AND COREG WERE NOT GIVEN DUE TO LOW HEART RATE AT 51.
--- NOTE | 2017-11-06 09:47 | NURSING ---
TONYA WAS ALSO INFORMED THAT THERE IS NOT ORDER TO OBTAIN CONSENT.
--- NOTE | 2017-11-06 10:00 | GALL_PTH ---
PATIENT: SUZI HERNANDEZ LOC: MS3 U#:[id number] AGE/SX: 72/M ROOM: MS318 RE11/05/[address]: Dr. Fan Leo MD : 1945 BED: 1 DIS: 11/06/2017 SPEC #: [id number] RECD: 11/06/17 11:41 STATUS: HAL REQ #: [id number] ROMERO: 11/06/17 10:[address]: Fan Leo DEPT: SURGICAL PATHOLOGY RECD BY: Grady Beckham ENTERED: 11/09/17 11:18 SP TYPE: SULEMA MENSAH DR: Dr. Stepan Mcgraw MD Tissues: Gallbladder, NOS Procedures: Surgery Specimen Level III HEADER OPERATION: Laparoscopic cholecystectomy PRE-OP DIAGNOSIS: Acute cholecystitis TISSUE SUBMITTED: Gallbladder MICROSCOPIC DIAGNOSIS Gallbladder, cholecystectomy: Chronic cholecystitis. AM:omari 11/10/17 MICROSCOPIC DESCRIPTION Slides are reviewed. GROSS DESCRIPTION Received is one container labeled with the patient's name and designated gallbladder. The specimen consists of a gallbladder measuring 8 cm in length and 3 cm in diameter. The external surface is pink-gomez, smooth and glistening for the most part. Focally it is granular, hemorrhagic and contains cautery artifact. The gallbladder contains a small amount of hemorrhagic bile. No stones are identified in the container or in the gallbladder. The mucosa is bile-stained and without any mass lesions. The gallbladder wall measures 0.2 cm in thickness. Generator Operator sections from the gallbladder and the cystic duct are submitted in one cassette. / SJ:rg 11/09/17 TC:3 CPT: 13123
--- NOTE | 2017-11-06 10:02 | NURSING ---
talked w/ , informed missing zosyn order on aug. Aware per he wrote orders, some were up in and some were missing. Aware pt leaving until for OR, this nurse back to room obtained copy of written orders. Faxed copy down to pharmacy, discussed with Tl that zosyn was missed and that pt is going to surgery now, needs to be put in the computer and zosyn needs sent to OR. Discussed with Primary RN. she states pt's bp was 190/107 states she already called report to OR-RN and had informed her had not given po meds on unit but requested this nurse to informed her of bp. called Joanne OR-RN informed of antibiotic to be sent to OR, informed her there was no written order for consent, I am unsure why the nurses did not call requesting order for consent as this nurse got report that pt was ready for OR, will discuss with nursing staff.
--- NOTE | 2017-11-06 10:26 | PCM.OPRPT ---
Problem List (1) Acute cholangitis Status: Acute Report of Operation Date of Procedure: 11/06/17 Pre-Operative Diagnosis: k81.0 acute cholecystitis Post-Operative Diagnosis: Same Surgery/Procedure Performed:: 01201 laparoscopic cholecystectomy Type of Anesthesia:: General Anesthesiologist: Tal Saenz Description of Procedure: Patient was brought in the operating room. Placed in the supine position. Under excellent endotracheal intubation the abdomen was sterilely prepped and draped in the usual fashion. Local was injected in the upper outer quadrant on the right side. Incision was made varies needle was placed inside the abdomen the abdomen was insufflated to 15 torr. A #5 trocar was placed without difficulty. Patient was noted to have no adhesions of the abdominal wall except for a small little band in the inferior aspect which was taken down with electrocautery made incision at the umbilicus placed a 1012 trocar without difficulty. I placed 2 #5 trochars one in the subxiphoid area and another one just inferior to this. All these trochars were placed without injury to underlying structures. I aspirated out the gallbladder grasped with a grasper and retracted in a cephalad direction I grasped the infundibulum and retracted laterally I dissected out the cystic duct place hemoclips proximally distally on the duct ligated the duct identified the cystic artery place hemoclips proximally distally ligated the artery deliver the gallbladder from the gallbladder bed we had some spillage of bile there were no stones. The specimen a specimen bag and delivered through the umbilical port without difficulty irrigated the right upper quadrant used Alesse cautery for good hemostasis I Did PLACE, Amanda in this gallbladder bed as well. I closed the fascia the umbilical area with 0 Vicryl. Skin incisions were closed with a particular stitches of 4-0 Monocryl. Steri-Strips are applied sterile dressings were applied and the patient tolerated the procedure well. - Admit VTE Documentation VTE Present on Admission: No VTE Mechan Device Prophylaxis: SCD's VTE Pharm Prophylaxis ordered?: No Reason prophylaxis not ordered:: Treatment Not Indicated
--- NOTE | 2017-11-06 10:29 | DCINST_ITS ---
Discharge Diet: Light diet - advance as tolerated Discharge Activity: May Not Drive - for 2-3 days or while taking narcotic pain medications., - - Do not drive, work heavy equipment or sign legal documents for 24 hours. May shower in (days): 1 - with the bandage in place. Additional Activity Instructions:: Pain medication may cause nausea. You should typically eat light foods as you take your pain medications. Pain medication may also cause constipation. If this is a problem for you, please discuss with your doctor. Call your doctor if your incision/area has: Continuous Slow Oozing, Sudden Increased Bleeding, Increased Pain/ Swelling, Increased Redness, Foul Smelling Discharge Call your doctor if you observe: Fever of 101 or Higher Suture Line Care: Avoid Pulling/Pushing, Avoid Pinching/Bending Additional Dressing/Incision Instructions:: Leave operative bandaids on for 2 days. When you remove dressing, leave Steri-Strips on until your follow-up appointment, or until the Steri-Strips fall off on their own. Allergies/Adverse Reactions: Allergies amlodipine Allergy (Intermediate, Verified 11/05/17 14:19) rash and swelling in lower legs DRAGAN Inhibitors Adverse Reaction (Intermediate, Verified 11/05/17 14:19) Cough Medications to take at Discharge ramipril 10 mg capsule 10 mg PO BID cap 06/02/17 Minoxidil [Loniten] 2.5 mg PO DAILY #30 tab 11/01/17 carvedilol 3.125 mg tablet 3.125 mg PO BID 11/02/17 multivitamin tablet 1 tab PO QDAY 11/02/17 Aspirin 81 mg PO QDAY 11/05/17 Atorvastatin Calcium 10 mg PO DAILY 11/05/17 Doxazosin Mesylate [Cardura] 4 mg PO QHS 11/05/17 Isosorbide Mononitrate [Isosorbide Mononitrate ER] 30 mg PO QAM 11/05/17 esomeprazole magnesium 20 mg capsule,delayed release 20 mg PO QDAY 11/05/17 Oxycodone HCl/Acetaminophen [Percocet 5/325] 1 - 2 tab PO Q4H PRN PRN 4 Days # 30 tab 11/06/17 The following prescriptions were given: Oxycodone HCl/Acetaminophen [Percocet 5/325] 1 - 2 tab PO Q4H PRN PRN 4 Days # 30 tab PRN Reason: Pain Primary Care Physician: Stepan Mcgraw MD [Primary Care Provider] - Please Follow Up With: Fan Leo MD - Please call [phone] to schedule an appointment. When: 7 days after your surgery.
[2017-11-06] MEDS: Bupivacaine Mpf 0.5% 30 ML VIAL (10:33)
[2017-11-06] MEDS: Isosorbide Mononitrate 30 MG Tablet PO (12:33)
[2017-11-06] MEDS: Carvedilol 3.125 MG TABLET PO (12:33)
[2017-11-06] MEDS: Piperacil/Tazobactam 3.375 GM Q8 PREMIX IV (13:52)
[2017-11-06] MEDS: Ramipril 10 MG Capsule PO (13:54)
== END 2017-11-06 18:50 | disposition home or self-care (01) ==
LOC: MS3 15:11
PROVIDERS: Admitting Provider Surgery; Family Provider Family Medicine; PCP Family Medicine; Visit Provider Surgery
PROC: (CPT 47562; principal; 2017-11-06 09:40)
DX: K81.2 Acute cholecystitis with chronic cholecystitis (principal); I10 Essential (primary) hypertension; K21.9 Gastro-esophageal reflux disease without esophagitis; R73.03 Prediabetes; Z79.899 Other long term (current) drug therapy; Z79.82 Long term (current) use of aspirin; Z85.46 Personal history of malignant neoplasm of prostate; G47.33 Obstructive sleep apnea (adult) (pediatric); E87.6 Hypokalemia
CPT/HCPCS: 47562; 36415; 80053; 85025; 88304; 93005; 96361; 96365; 96366; 96375; 96376; 99218; A4216; G0378; G0379; J2405

== ENCOUNTER 2017-12-25 08:48 | Emergency (ER) | payer MEDICARE, SELFPAY ==
[2017-12-25 08:49] VITALS: BP 192/109; PULSE 68; RESP 16; TEMP 36.6; O2SAT 97; BMI 29.6
--- NOTE | 2017-12-25 09:18 | CT_ITS ---
STUDY: CT BRAIN WITHOUT CONTRAST REASON FOR EXAM: Male, 72 years old. Headache with elevated blood pressure RADIATION DOSAGE (If Supplied By Facility): CTDIvol = ( 44.99 ) mGy, DLP = ( 779.24 ) mGycm TECHNIQUE: Transaxial CT imaging of the brain was performed without administration of intravenous contrast material. Individualized dose optimization techniques were used for this CT. COMPARISON: None. FINDINGS: Normal soft tissue structures. Normal calvarium. There is mild cerebral atrophy with widening of the extra-axial spaces and ventricular dilatation. There are areas of decreased attenuation within the white matter tracts of the supratentorial brain, consistent with microvascular disease changes. Normal basal ganglia and thalami. Normal brainstem. Normal cerebellum. There is no intracranial hemorrhage. There are no findings of an acute ischemic infarction. There is mucoperiosteal inflammatory disease of the paranasal sinuses consistent with mild chronic sinusitis. CT/Brain/Head without Contrast IMPRESSION: Chronic involutional changes of the brain. Electronically Signed: Harman Davis DO at 9:51 EDT Tel , Service support ,
--- NOTE | 2017-12-25 09:25 | ED.DCSUM_ITS ---
- ER Visit Summary Date of Service: 12/25/17 Chief Complaint: Headache History of Present Illness: The patient is a 72 M with an intermittent headache for weeks. Worse today. He checked his blood pressure and it was high. He has had difficulty controlling his blood pressure, and he has had some recent medication adjustments. He has been compliant with his medications. He takes ramipril 10 mg twice a day, Cardura 8 mg at bedtime, and carvedilol 3.125 mg twice a day. Denies any weakness or numbness. Denies vision changes. Denies nausea or vomiting. Denies chest pain or shortness of breath. Denies abdominal pain or back pain. Denies rash or skin changes. Physical Exam: Blood pressure 192/109. Otherwise vitals unremarkable. Afebrile. Patient alert and oriented. No acute distress. Sitting comfortably. HEENT exam unremarkable. Cranial nerves grossly intact. Neck nontender. Heart regular. Lungs clear. Abdomen soft. Moves all extremities. No focal or lateralizing neurologic abnormalities grossly. Skin appears normal. Results: CT head pending. ED Course and Treatment Plan: I have low suspicion for hypertensive emergency. His only symptom is intermittent headaches. I ordered a CT of his head. I spoke with Dr. Noe who is on-call for Dr. Gomes. He advised increasing the carvedilol to 12.5 mg twice a day and following up in the office. Patient was treated with 9.375 mg here to supplement his morning dose. Will reassess after CT. CT was unremarkable. Patient is stable. Will change his medication as instructed. Return for any new or worsening issues. Follow-up with cardiology. Disposition: Discharged Impression: 1. Hypertension This note was generated with [employer] dictation software. It may contain incorrect words, spelling, and punctuation that were not noted in review of the chart prior to signing ED Disposition - Plan for ED Patient: Disposition: Home or Assisted Living Chief Complaint: Hypertension Instructions: ED HTN Established Prescriptions: Carvedilol [Coreg] 12.5 mg PO BID #60 tab Referrals: Alejandro Gomes MD [STAFF PHYSICIAN] -
[2017-12-25] MEDS: Carvedilol 3.125 MG TABLET 9.375 MG PO (09:39)
[2017-12-25 09:40] VITALS: RESP 16
--- NOTE | 2017-12-25 09:58 | ED.DEP ---
ED Disposition - Plan for ED Patient: Chief Complaint: Hypertension Instructions: ED HTN Established Prescriptions: Carvedilol [Coreg] 12.5 mg PO BID #60 tab Referrals: Alejandro Gomes MD [STAFF PHYSICIAN] -
[2017-12-25 10:10] VITALS: BP 179/95; PULSE 55; RESP 16
== END 2017-12-25 10:11 | disposition home or self-care (01) ==
PROVIDERS: Emergency Provider Emergency Medicine; Family Provider Family Medicine; PCP Family Medicine
DX: I10 Essential (primary) hypertension (principal); G47.33 Obstructive sleep apnea (adult) (pediatric); Z87.19 Personal history of other diseases of the digestive system; Z86.79 Personal history of other diseases of the circulatory system; Z79.899 Other long term (current) drug therapy
CPT/HCPCS: 70450; 99283

== ENCOUNTER 2017-12-26 17:35 | Emergency (ER) | payer MEDICARE, SELFPAY ==
[2017-12-26 17:36] VITALS: BP 207/98; PULSE 52; RESP 18; TEMP 37; O2SAT 100; BMI 28.8
--- NOTE | 2017-12-26 18:05 | ED.VISSUMM ---
- ER Visit Summary Date of Service: 12/26/17 Chief Complaint: Acute on chronic hypertension History of Present Illness: The patient is a 72 M known history of hypertension. Was seen ER yesterday. Had his hypertensive medications adjusted. Has been follow-up with Dr. Gomes. Earlier today his blood pressure is again elevated. He states he went [facility] the [facility]. They informed him that they did not do anything with blood pressure. He went home but then later came in the ER to be evaluated. He denies any headache today he did have one yesterday but the CAT scan was negative. States he had some intermittent nondescript chest discomfort but recently had a nuclear stress test that was negative. Recently had a cholecystectomy. Physical Examination: Well-appearing older male. Vital signs are stable blood pressure 207/98. Pulse ox 100% room air no signs of hypoxia. H EENT exam unremarkable. Pupils round reactive light. No facial droop. Normal speech. Neck nontender no JVD. Lungs clear to auscultation bilaterally. Heart regular rhythm rate about 60. No murmur. Chest wall nontender. Abdomen soft nontender. He is moving all 4 extremities. They are neurovascularly intact. 5 out of 5 drainlayer strength bilaterally. Dorsi plantar flexion intact. Fingertip to nose within normal limits. Neurologic exam normal NIH is 0. Test Results: EKG shows a sinus bradycardia rate of 55 with no acute abnormality. I offered the patient additional workup even though clinically is a normal exam and he refuses at this time. He wants to go home and follow-up with his director of online education about his blood pressure. Emergency Department Course and Treatment: Patient does not want any further evaluation. Clinically his exam is normal. Treatment Plan: Discharged to home. Take his blood pressure twice daily. Follow-up Dr. Gomes to see how they can adjust his antihypertensive medications to control his blood pressure better. Disposition: Discharge Impression: Acute on chronic hypertension Patient did not want blood work drawn or further evaluation This note was generated with [employer] dictation software. It may contain incorrect words, spelling, and punctuation that were not noted in review of the chart prior to signing ED Disposition - Plan for ED Patient: Chief Complaint: Hypertension Referrals: Stepan Mcgraw MD [Primary Care Provider] -
--- NOTE | 2017-12-26 18:09 | ED.DCSUM_ITS ---
- ER Visit Summary Date of Service: 12/26/17 Chief Complaint: Acute on chronic hypertension History of Present Illness: The patient is a 72 M known history of hypertension. Was seen ER yesterday. Had his hypertensive medications adjusted. Has been follow-up with Dr. Gomes. Earlier today his blood pressure is again elevated. He states he went to the [facility]. They informed him that they did not do anything with blood pressure. He went home but then later came in the ER to be evaluated. He denies any headache today he did have one yesterday but the CAT scan was negative. States he had some intermittent nondescript chest discomfort but recently had a nuclear stress test that was negative. Recently had a cholecystectomy. Physical Examination: Well-appearing older male. Vital signs are stable blood pressure 207/98. Pulse ox 100% room air no signs of hypoxia. H EENT exam unremarkable. Pupils round reactive light. No facial droop. Normal speech. Neck nontender no JVD. Lungs clear to auscultation bilaterally. Heart regular rhythm rate about 60. No murmur. Chest wall nontender. Abdomen soft nontender. He is moving all 4 extremities. They are neurovascularly intact. 5 out of 5 seam hammerer strength bilaterally. Dorsi plantar flexion intact. Fingertip to nose within normal limits. Neurologic exam normal NIH is 0. Test Results: EKG shows a sinus bradycardia rate of 55 with no acute abnormality. I offered the patient additional workup even though clinically is a normal exam and he refuses at this time. He wants to go home and follow-up with his inside steward/stewardess about his blood pressure. Emergency Department Course and Treatment: Patient does not want any further evaluation. Clinically his exam is normal. Treatment Plan: Discharged to home. Take his blood pressure twice daily. Follow-up Dr. Gomes to see how they can adjust his antihypertensive medications to control his blood pressure better. Disposition: Discharge Impression: Acute on chronic hypertension Patient did not want blood work drawn or further evaluation This note was generated with [employer] dictation software. It may contain incorrect words, spelling, and punctuation that were not noted in review of the chart prior to signing ED Disposition - Plan for ED Patient: Chief Complaint: Hypertension Referrals: Stepan Mcgraw MD [Primary Care Provider] -
--- NOTE | 2017-12-26 18:09 | ED.DEP ---
ED Disposition - Plan for ED Patient: Disposition: Home or Assisted Living Chief Complaint: Hypertension Instructions: ED Hypertension Conf Out Of Control Referrals: Stepan Mcgraw MD [Primary Care Provider] - As Needed Alejandro Gomes MD [STAFF PHYSICIAN] - As soon as possible Additional Instructions: Call and follow-up Dr. Gomes as soon as possible. Log your blood pressures twice daily. In the morning after breakfast and in the evening after dinner when your calm and relaxed. Take those readings to Dr. Gomes for your next evaluation so you and he can work together to adjust her medications as needed.
--- NOTE | 2017-12-26 18:19 | EKG12_ITS ---
Test Reason : HTN Blood Pressure : / mmHG Vent. Rate : 055 BPM Atrial Rate : 055 BPM P-R Int : 174 ms QRS Dur : 088 ms QT Int : 428 ms P-R-T Axes : 039 040 021 degrees QTc Int : 409 ms Sinus bradycardia Otherwise normal ECG Confirmed by ANDRESSA KRUEGER, NICOLE ([id number]), editor publications AMINA LILLY ([id number]) on 12/28/2017 12:46:48 PM Referred By: DESTINY Confirmed By:NICOLE CRISOSTOMO MD
[2017-12-26 18:22] VITALS: BP 201/103; PULSE 57; RESP 14; O2SAT 97
== END 2017-12-26 18:22 | disposition home or self-care (01) ==
PROVIDERS: Emergency Provider Emergency Medicine; Family Provider Family Medicine; PCP Family Medicine
DX: I10 Essential (primary) hypertension (principal); Z53.20 Procedure and treatment not carried out because of patient's decision for unspecified reasons; Z79.899 Other long term (current) drug therapy
CPT/HCPCS: 93005; 99282

== ENCOUNTER → 2018-04-27 09:04 | Outpatient (CLI) | payer MEDICARE, SELFPAY ==
--- NOTE | 2018-04-27 09:07 | RDU_ITS ---
Reason For Study: Hypertension Right Renal Artery Left Renal Artery Right renal artery ostium 112/20.1 Left renal artery ostium 118/38.3 RSV/EDV. PSV/EDV. Right renal artery proximal Left renal artery proximal PSV/EDV 105/23.8 PSV/EDV. 117/30 . Right renal artery mid 63.3/20.8 Left renal artery mid 110/28.3 PSV/EDV. PSV/EDV . Right renal artery distal 69.9/17.6 Left renal artery distal 78.8/14.1 PSV/EDV. PSV/EDV. Right RAR 1.27. Left RAR 1.33. Right Renal Parenchyma Left Renal Parenchyma Upper Pole Medula 28.3/7.41 Left upper pole medulla 14.4/4.44 PSV/EDV. PSV/EDV . Right upper pole medulla EDR 0.26 . Left upper pole medulla EDR 0.31 . Right upper pole medulla R.I. Left upper pole medulla R.I. 0.69 . 0.74 . UP Cortex 18.7/8.15 PSV/EDV. Upper Evert Cortx 18.1/6.11 PSV/EDV. Left upper pole cortex EDR 0.44 . Right upper pole cortex EDR 0.34 . Left upper pole cortex R.I. 0.56 . Right upper pole cortex R.I. 0.66 . Left lower Pole medulla 15.2/5 Right lower Pole medulla 25.4/7.22 PSV/EDV . PSV/EDV . Left lower pole medulla EDR 0.33 . Right lower pole medulla EDR 0.28 . Left lower pole medulla R.I. 0.67 . Right lower pole medulla R.I. Lower Pole Cortx 20/5.93 PSV/EDV. 0.72 . Left lower pole cortex EDR 0.30 . Lower Pole Cortex 16.7/6.48 Left lower pole cortex R.I. 0.70 . PSV/EDV. Left Renal Hilar Right lower pole cortex EDR 0.39 . LT Hilar avg 42.2/8.56 PSV/EDV . Right Renal Hilar Left hilar acceleration time 51 Right Hilar avg 44.3/15 PSV/EDV. m/sec. Right hilar acceleration time 44 Left Renal Dimensions m/sec. Left kidney size 11.8 cm . Right Renal Dimensions Left cortical dimension 1.81 cm . Right kidney size 12.4 cm . Right cortical dimension 1.79 cm . Aorta Proximal abdominal aorta 1.63 x 1.72 cm . Distal abdominal aorta 1.75 x 1.68 cm . Proximal abdominal aorta peak systolic velocity is 88.5 cm/sec . Distal abdominal aorta peak systolic velocity is 127 cm/sec . Interpretation Summary Dimensions of the intra-abdominal aorta appear normal, without evidence of aneurysmal dilatation. Renal artery velocities are bilaterally normal. Acceleration times are normal bilaterally. Renal- aortic ratios are also bilaterally normal. There is no evidence of hemodynamically significant renal artery stenosis on either side. The right cortical dimension is increased. The left cortical dimension is increased. Kidneys appear normal in size bilaterally. Ordering Physician: Stepan Mcgraw Performed By: Malia Pretty RVT and Student
== END ==
PROVIDERS: Family Provider Family Medicine; PCP Family Medicine; Visit Provider Family Medicine
DX: I10 Essential (primary) hypertension (principal)
CPT/HCPCS: 93975

== ENCOUNTER → 2018-11-25 | Outpatient (CLI) | payer MEDICARE, SELFPAY ==
--- NOTE | 2018-11-25 08:42 | RDU_ITS ---
Version 2 Reason For Study: HTN Right Renal Artery Left Renal Artery Right renal artery ostium Left renal artery ostium 126.4/28.5 116.2/30.1 RSV/EDV. PSV/EDV. Right renal artery proximal Left renal artery proximal PSV/EDV 104.2/24 PSV/EDV. 130.9/33.9 . Right renal artery mid 120.8/31 Left renal artery mid 144/35.5 PSV/EDV. PSV/EDV . Right renal artery distal Left renal artery distal 110/28.3 113.1/29.3 PSV/EDV. PSV/EDV. Right Renal Parenchyma Left Renal Parenchyma Upper Pole Medula 41.1/8.5 PSV/EDV. Left upper pole medulla 40.1/10.9 Right upper pole medulla EDR 0.21 . PSV/EDV . Right upper pole medulla R.I. Left upper pole medulla EDR 0.27 . 0.79 . Left upper pole medulla R.I. 0.73 . Upper Evert Cortx 35.6/8.5 PSV/EDV. UP Cortex 25.5/8.1 PSV/EDV. Right upper pole cortex EDR 0.24 . Left upper pole cortex EDR 0.32 . Right upper pole cortex R.I. 0.76 . Left upper pole cortex R.I. 0.68 . Right lower Pole medulla 34.9/7.3 Left lower Pole medulla 33.7/11 PSV/EDV . PSV/EDV . Right lower pole medulla EDR 0.21 . Left lower pole medulla EDR 0.33 . Right lower pole medulla R.I. Left lower pole medulla R.I. 0.67 . 0.79 . Lower Pole Cortx 25.1/7.3 PSV/EDV. Lower Pole Cortex 27.6/6.7 PSV/EDV. Left lower pole cortex EDR 0.29 . Right lower pole cortex EDR 0.24 . Left lower pole cortex R.I. 0.71 . Right lower pole cortex R.I. 0.76 . Left Renal Hilar Right Renal Hilar LT Hilar avg 61.1/16.3 PSV/EDV . Right Hilar avg 50.4/13.1 PSV/EDV. Left hilar acceleration time 50 Right hilar acceleration time 20 m/sec. m/sec. Left Renal Dimensions Right Renal Dimensions Left kidney size 11.53 cm . Right kidney size 12.16 cm . Left cortical dimension 2.04 cm . Right cortical dimension 2.22 cm . Aorta Proximal abdominal aorta 1.65 x 1.57 cm . Proximal abdominal aorta peak systolic velocity is 121.2 cm/sec . Distal abdominal aorta 1.44 x 1.46 cm . Distal abdominal aorta peak systolic velocity is 110.2 cm/sec . Interpretation Summary Dimensions of the intra-abdominal aorta appear normal, without evidence of aneurysmal dilatation. Renal artery velocities are bilaterally normal. Acceleration times are normal bilaterally. There is no evidence of hemodynamically significant renal artery stenosis on either side. The right cortical dimension is increased. The left cortical dimension is increased. Kidneys appear normal in size bilaterally. Renovascular resistance appears to be elevated, particularly on the right. Ordering Physician: Stepan Mcgraw Referring Physician: Stepan Mcgraw Performed By: Candelaria Gabriel RVT
== END | disposition home or self-care (01) ==
LOC: CVS 08:40
PROVIDERS: Family Provider Family Medicine; PCP Family Medicine; Referring Provider Family Medicine; Visit Provider Family Medicine
DX: I10 Essential (primary) hypertension (principal)
CPT/HCPCS: 93975

== ENCOUNTER → 2019-03-23 12:18 | Outpatient (CLI) | payer MEDICARE, SELFPAY ==
[2019-03-23 08:52] VITALS: BMI 28.8
[2019-03-23 12:47] LABS: Absolute Neutrophil Count 3.8 X10^3/uL (2.0-7.7); Basophil# 0.02 X10^3/uL; Basophil% 0.3 % (0-1); Eosinophil# 0.08 X10^3/uL; Eosinophils% 1.4 % (0-5); Hematocrit 41.9 % (40-54); Hemoglobin 14.1 g/dL (13.0-16.5); Lymphocyte % 20.7 % (19-41); Mean Corp Hgb Conc 33.7 g/dL (32-36); Mean Corpuscular Hgb 29.9 pg (27.0-32.0); Mean Corpuscular Volume 88.8 fL (80-94); Mean Platelet Vol. 9.6 fl (6.2-12.0); Monocyte# 0.62 X10^3/uL; Monocyte% 10.7 % (0-10); NRBC Flagged by Analyzer 0 % (0-5); Neutrophil # 3.84 X10^3/uL (2.7-7.7); Platelet Count 204 K/mm3 (150-450); RBC Distribution Width CV 13.2 % (11.6-14.6); RBC Distribution Width SD 43.3 fl (35.1-43.9); Red Blood Count 4.72 M/mm3 (4.6-6.2); White Blood Count 5.8 K/mm3 (4.4-11.0)
[2019-03-23 13:06] LABS: BNP,B-Type NATRIURETIC PEPTIDE 7.6 pg/mL (0-100)
[2019-03-23 13:34] LABS: Anion Gap 6 (5-15); BUN 38 mg/dL (7-18); BUN/Creat Ratio 24.5 RATIO (10-20); Calcium,Total 8.9 mg/dL (8.5-10.1); Chloride 100 mmol/L (98-107); Creatinine, Serum 1.55 mg/dL (0.70-1.30); EST Glomerular Filtration Rate 47 mL/min (>60); Est Glom Filt Rate - Afr Amer 57 mL/min (>60); Glucose 131 mg/dL (74-106); Potassium 4.6 mmol/L (3.5-5.1); Sodium Level 133 mmol/L (136-145); Thyroid Stim Hormone (TSH) 1.68 uIU/mL (0.358-3.74)
== END ==
PROVIDERS: Family Provider Family Medicine; PCP Family Medicine; Referring Provider Physician Assistant Medical; Visit Provider Physician Assistant Medical
DX: R53.83 Other fatigue (principal); R06.02 Shortness of breath
CPT/HCPCS: 36415; 80048; 83880; 84443; 85025

== ENCOUNTER → 2019-03-31 06:16 | Outpatient (CLI) | payer MEDICARE, SELFPAY ==
[2019-03-23 08:52] VITALS: BMI 28.8
--- NOTE | 2019-03-31 09:28 | STRESSREP_ITS ---
Stress Test Report Date: 03-31-19 Procedure: Exercise tolerance test/imaging study Indications: Chest pain; shortness of breath/dyspnea with exertion Consent: Per the patient Procedure: The patient exercised on a Kane protocol for 9 minutes completing Stage III achieving a peak heart rate of 136 bpm (91 % predicted maximal heart rate) with a peak blood pressure 160/70 mmHg and a peak MET capacity of 10 METs. The baseline ECG demonstrated sinus rhythm. The peak exercise ECG demonstrated somatic/motion artifact with approximately [address] segment depression in leads II, III, aVF, and V4 through V6 with resolution towards baseline beginning by 1 minute in recovery. There were no cardiac dysrhythmias pretest, during exercise, or recovery. The functional capacity was considered good. There was nonlimiting dull chest discomfort during exercise with spontaneous improvement in recovery. The examination was discontinued secondary to leg discomfort. Impression: 1. Technically adequate (percent predicted maximal heart rate greater than 85%) exercise tolerance test 2. Peak exercise ECG demonstrated somatic/motion artifact with approximately [address] segment depression in leads II, III, aVF, and V4 through V6 with resolution towards baseline beginning by 1 minute in recovery 3. There were no cardiac dysrhythmias pretest, during exercise, or recovery 4. Nuclear images pending Myocardial perfusion imaging study: Technique: The patient was injected with 12.0 mCi of technetium 99m Cardiolite and subsequ ently rest SPECT Cardiolite nuclear imaging was obtained in the horizontal long, vertical long, and short axis views. The patient exercised on a Kane protocol for 9 minutes completing Stage III achieving a peak heart rate of 136 bpm (91 % predicted maximal heart rate) with a peak blood pressure 160/70 mmHg and a peak MET capacity of 10 METs. The patient was injected with 36.0 mCi of technetium 99 m Cardiolite and subsequently stress SPECT Cardiolite nuclear imaging was obtained in the horizontal long, vertical long, and short axis views. A gated Cardiolite study at peak stress was obtained. Interpretation: Rest and stress SPECT Cardiolite nuclear imaging status post realignment, normalization, and attenuation correction, demonstrates the appearance of relative uniform tracer uptake and myocardial perfusion appearing within normal limits. There is end systolic thickening and brightening. The gated Cardiolite study demonstrates myocardial thickening and inward wall motion. The reported LVEF is 66 %. Impression: 1. Rest and stress SPECT Cardiolite nuclear imaging demonstrate relative uniform tracer uptake and myocardial perfusion appearing within normal limits. 2. The gated Cardiolite study reports an LVEF of 66 %. This note was generated with [employer] software. It may contain incorrect words, spelling, and punctuation that were not noted in checking the note before signing.
== END ==
PROVIDERS: Family Provider Family Medicine; PCP Family Medicine; Referring Provider Physician Assistant Medical; Visit Provider Physician Assistant Medical
DX: R06.02 Shortness of breath (principal); R53.83 Other fatigue
CPT/HCPCS: 78452; 93017; 93225; 93226; A9500; A4216

== ENCOUNTER 2019-04-11 07:49 | Day surgery (SDC) | payer MEDICARE, SELFPAY ==
[2019-03-23 08:52] VITALS: BMI 28.8
--- NOTE | 2019-03-31 15:54 | RAD_ITS ---
STUDY: X-RAY CHEST REASON FOR EXAM: Male, 73 years old. Preop for heart catheterization TECHNIQUE: PA and lateral views of the chest. COMPARISON: 10/31/2017 FINDINGS: The lungs are clear and expanded. There is no demonstrated pleural abnormality. Normal size heart. Normal mediastinum and sonal. Normal visualized pulmonary arteries. There is atherosclerotic tortuosity of the aortic arch and descending thoracic aorta. There are diffuse degenerative changes of the visualized thoracic spine. Normal visualized ribs, clavicles, and shoulders. There is no demonstrated abnormality of the visualized soft tissue structures of the upper abdomen. RAD/Chest PA and Lateral IMPRESSION: Stable, nonacute x-ray examination of the chest. Electronically Signed: Raoul Pardo MD ([place]) at 16:09 EDT , Service support ,
[2019-03-31 17:35] LABS: International Normalized Ratio 1.1; Partial Thromboplast Time 30.8 Seconds (24.1-36.2); Prothrombin Time (Protime)PT. 13.5 SECONDS (11.7-14.9)
--- NOTE | 2019-04-11 08:02 | PCM.HP.BLA ---
Problem List (1) Chest pain Status: Acute (2) Abnormal stress test Status: Acute (3) Essential (primary) hypertension Status: Chronic History and Physical Date of Admission: 04/11/19 [facility] [address] [place] [address] OFFICE VISIT Date of Service: 03/23/19 MR#: [id number] Acct: [id number] Name: SUZI HERNANDEZ Rep #: [id number] : 1945 Provider: Nay Ibsell Age/Sex: 73/M Location: [facility] [place] Status: Signed HPI HPI History of Present Illness Details: SUZI HERNANDEZ, is a 73 M who presents to the office today for a cardiovascular follow-up. He does have a history of hypertension, pericarditis and obstructive sleep apnea. At his last office visit his Coreg was discontinued due to his bradycardia. He did not stop his coreg, he is taking this once a day. He did stop his HCTZ. He noted that his BP has been low Pt sts that since he was in to see us he has noticed chest pain and SOB. He sts that this is both at rest and with exertion. He was able to cut firewood yesterday. He also notes that he has been more fatigued and SOB with exertion. He fell yesterday because he was lightheaded. Intake Vital Signs 03/23/19 Height 5 ft 9 in 03/23/19 Weight: 195 lb 03/23/19 Body Mass Index (BMI) 28.8 03/23/19 Blood Pressure 103/67 03/23/19 Blood Pressure Location Lt brachial 03/23/19 Respiratory Rate 18 03/23/19 Pulse Rate 51 L 03/23/19 Pulse Source Monitor 03/23/19 Pulse Ox 96 Intake Visit Reasons: Increased SOB Thermodynamic Physicist Required: No Is patient in pain?: Yes Allergies amlodipine Allergy (Intermediate, Verified 03/23/19 11:36) rash and swelling in lower legs DRAGAN Inhibitors Adverse Reaction (Intermediate, Verified 03/23/19 11:36) Cough Medications multivitamin tablet 1 tab PO QDAY 11/02/17 [History Confirmed 03/23/19] esomeprazole magnesium 20 mg capsule,delayed release 20 mg PO QDAY 11/05/17 [History Confirmed 03/23/19] doxazosin 8 mg tablet 8 mg PO QHS #90 tab 12/07/17 [Rx Confirmed 03/23/19] ramipril 10 mg capsule 10 mg PO BID #180 cap 12/07/17 [Rx Confirmed 03/23/19] diltiazem ER 180 mg capsule,24 hr,extended release 180 mg PO DAILY 12/23/18 [History Confirmed 03/23/19] hydrochlorothiazide 25 mg tablet 25 mg PO QHS tab 12/23/18 [History Confirmed 03/23/19] spironolactone 50 mg tablet 50 mg PO DAILY 12/23/18 [History Confirmed 03/23/19] [facility] Medical History (Updated 12/22/18 @ 09:40 by Nay Dalton) Chest pain (Acute) Bradycardia (Chronic) History of pericarditis (Chronic) Obstructive sleep apnea (Chronic) Essential (primary) hypertension (Chronic) Bradycardia (Acute) Chest pain (Acute) Fatigue (Acute) Gallbladder disease (Acute) Surgical History (Updated 12/22/18 @ 09:39 by Nay Dalton) History of hernia repair (Resolved) History of left heart catheterization (LHC) (Resolved ~04/16/08) History of prostate surgery (Resolved) S/P LASIK surgery of both eyes (Resolved) S/P laparoscopic cholecystectomy (Resolved) Family History (Updated 11/05/17 @ 14:18 by Trinity Rabago) Father CAD (coronary artery disease) Colon cancer Hypertension Mother CVA (cerebral vascular accident) Hypertension Arthritis Brother Arthritis Hypertension Social History (Updated 03/23/19 @ 14:05 by MICKY Colon) Smoking Status: Never smoker alcohol intake: current alcohol intake frequency: 0-2 drinks per day Alcohol type: wine caffeine: Yes Type: coffee Number of servings: 2 what type of physical activity do you participate in: weight training ROS Const Const: Positive for fatigue; negative for weakness, frequent falls, excessive sweating, weight gain or weight loss Eyes Eyes: Negative for transient loss of vision, blurry vision or change in vision ENT ENT: Positive for dizziness (bending over and sittingup); negative for balance problems Cardio Chest Pain: No Palpitations: Yes (occasional) feels like its: pounding Edema: None Muscle aches with walking: None Resp Respiratory: Positive for SOB with activity; negative for SOB at rest GI GI: Negative vomiting or vomiting blood/hematemesis : Negative for hematuria Musc Musc: Negative for balance problems Skin Skin: Negative non-healing lesions or rash Neuro Neuro: Positive for dizziness (bending over and sittingup); negative for frequent falls, weakness or blurry vision Mina Hematologic/Lymphatic: Negative for easy bleeding Endo Endo: Positive for fatigue; negative for excessive sweating Psych Psych: Negative for anxiety or depression Allergy Allergy/Immunology: Negative for rash Cardiology Exam Const Appearance: cooperative, no acute distress and well developed Orientation: alert, awake and oriented x3 Head Head: normocephalic and atraumatic Mouth: moist mucous membranes Eyes General: appearance normal, both eyes and all related structures Conjunctivae: conjunctivae normal Pupils: PERRL EOM: EOM intact bilaterally Neck Neck: normal visual inspection, no lymphadenopathy and no JVD Carotids: Negative bruit Neck Mass: Negative Neck mass Chest Chest inspection: normal inspection of the chest and symmetric chest movement Auscultation: Bilateral: Clear to Auscultation Cardio Palpation: normal PMI Rate: regular rate Rhythm: regular rhythm Heart sounds: S1 normal and S2 normal; negative rub, gallop or murmur GI GI: normal to inspection, soft, no hepatosplenomegaly and bowel sounds present; negative tender Neuro General: alert, awake, oriented x3, CN's II-XI intact bilaterally and moves all extremities Extremities Pulses: Normal: Right Posterior Tibial Pulse, Left Posterior Tibial Pulse, Right Radial Pulse, Left Radial Pulse Lower Extremity Edema: None: Bilateral Psych Psychological: normal affect Assessment & Plan 1. Essential hypertension I10 Plan Blood pressure is on the low side. Patient has not stopped his Coreg completely. We will have him stop this. We will also have him stop his spironolactone. He has stopped his hydrochlorothiazide previous to this office visit. Patient Instructions Stop your HCTZ and your spirolactone. Stop your coreg. 2. Bradycardia R00.1 Plan Patient shortness of breath could be related to his low heart rate. Would like to obtain a 24-hour Holter monitor. He has not decreased his Coreg as he was advised to. He is currently only taking 1 pill a day. We will have him discontinue this. Orders Orders: 12 Lead EKG performed by BMS Today 3. SOB (shortness of breath) R06.02 Plan With patient's shortness of breath will obtain labs and a stress test to make sure that this is not an anginal equivalent. Orders Orders: Basic Metabolic Profile (BMP) Today Thyroid Stim Hormone (TSH) Today Cardiac Holter Monitor, Set-Up Today Cardiac Holter Monitor/Day Today CBC W/Diff, Automated Today Nuclear Stress Test - Treadmil Today BNP,B-Type NATRIURETIC PEPTIDE Today Plan Detail Other Orders Orders: Basic Metabolic Profile (BMP) Today R5.83 Thyroid Stim Hormone (TSH) Today R5.83 Cardiac Holter Monitor, Set-Up Today R53.83 Cardiac Holter Monitor/Day Today R53.83 CBC W/Diff, Automated Today R5.83 Nuclear Stress Test - Treadmil Today R5.83 BNP,B-Type NATRIURETIC PEPTIDE Today R583 Other Medications Discontinued: carvedilol Discontinued Reason: Order Completed 6.25 mg PO DAILY Additional Comments Would like to follow-up with patient after testing is complete. Follow Up 2 Weeks (MMM- please schedule tests soon) Coding Level of Care Code Off vis,est,level 4 Diagnoses Essential hypertension I10 Bradycardia R00.1 SOB (shortness of breath) R06.02 Coding Level of Care Code Off vis,est,level 4 Diagnoses Essential hypertension I10 Bradycardia R00.1 SOB (shortness of breath) R06.02 Supplemental Info Supplemental Information Stress test in 2018 demonstrated Normal exercise myocardial perfusion stress test at a high workload. No arrhythmias noted. Excellent functional capacity. No clinical angina present. Echocardiogram in 2018 demonstrated Left ventricular systolic function is normal. The estimated ejection fraction is 65 %. Mild concentric left ventricular hypertrophy. The left atrium is mildly enlarged. The right atrium is mildly enlarged. Trivial mitral valve insufficiency. Trivial tricuspid valve insufficiency. Aortic sclerosis, no stenosis. Trivial pulmonic valve insufficiency. Right ventricular systolic pressure estimated to be 35 mmHg. There is evidence of diastolic dysfunction. Diagnostics Electrocardiogram 03/23/19 03/23/19 1405 <Electronically signed by Nay WEEKS> Date Nay WEEKS Cosigner Signature: Date (if applicable) CC: ~ I have examined the patient the following changes are noted: The patient subsequently underwent exercise tolerance test/imaging study. The results are as noted below. Stress Test Report Date: 03-31-19 Procedure: Exercise tolerance test/imaging study Indications: Chest pain; shortness of breath/dyspnea with exertion Consent: Per the patient Procedure: The patient exercised on a Kane protocol for 9 minutes completing Stage III achieving a peak heart rate of 136 bpm (91 % predicted maximal heart rate) with a peak blood pressure 160/70 mmHg and a peak MET capacity of 10 METs. The baseline ECG demonstrated sinus rhythm. The peak exercise ECG demonstrated somatic/motion artifact with approximately [address] segment depression in leads II, III, aVF, and V4 through V6 with resolution towards baseline beginning by 1 minute in recovery. There were no cardiac dysrhythmias pretest, during exercise, or recovery. The functional capacity was considered good. There was nonlimiting dull chest discomfort during exercise with spontaneous improvement in recovery. The examination was discontinued secondary to leg discomfort. Impression: 1. Technically adequate (percent predicted maximal heart rate greater than 85%) exercise tolerance test 2. Peak exercise ECG demonstrated somatic/motion artifact with approximately [address] segment depression in leads II, III, aVF, and V4 through V6 with resolution towards baseline beginning by 1 minute in recovery 3. There were no cardiac dysrhythmias pretest, during exercise, or recovery 4. Nuclear images pending Myocardial perfusion imaging study: Technique: The patient was injected with 12.0 mCi of technetium 99m Cardiolite and subsequently rest SPECT Cardiolite nuclear imaging was obtained in the horizontal long, vertical long, and short axis views. The patient exercised on a Kane protocol for 9 minutes completing Stage III achieving a peak heart rate of 136 bpm (91 % predicted maximal heart rate) with a peak blood pressure 160/70 mmHg and a peak MET capacity of 10 METs. The patient was injected with 36.0 mCi of technetium 99m Cardiolite and subsequently stress SPECT Cardiolite nuclear imaging was obtained in the horizontal long, vertical long, and short axis views. A gated Cardiolite study at peak stress was obtained. Interpretation: Rest and stress SPECT Cardiolite nuclear imaging status post realignment, normalization, and attenuation correction, demonstrates the appearance of relative uniform tracer uptake and myocardial perfusion appearing within normal limits. There is end systolic thickening and brightening. The gated Cardiolite study demonstrates myocardial thickening and inward wall motion. The reported LVEF is 66 %. Impression: 1. Rest and stress SPECT Cardiolite nuclear imaging demonstrate relative uniform tracer uptake and myocardial perfusion appearing within normal limits. 2. The gated Cardiolite study reports an LVEF of 66 %. Based upon the patient's clinical course, his stress ECG findings despite the myocardial perfusion findings, his upcoming travels to spend the winter in the [facility], it was elected to further evaluate the patient with diagnostic cardiac catheterization to compare to his previous study of 04-16-2008 with respect to his coronary anatomy for further evaluation and care as deemed appropriate. The procedure and risks were discussed with the patient. He was agreeable to this approach. This note was generated using a voice recognition system and there may be incorrect words, spelling or punctuation that were not noted when reviewing the office note prior to saving.
[2019-04-11 08:05] VITALS: BMI 29.0
--- NOTE | 2019-04-11 09:36 | CL.D_ITS ---
Patient Name: SUZI HERNANDEZ Study Date: 04/11/2019 Performing: Alejandro Gomes MD Ht: 68 inches 172.72 cm : 1945 Wt: 191.38 lbs 86.81 kg Age: 73 Gender: male BSA: 2.01 PROCEDURE(S) PERFORMED [id number]/COR/LV CLINICAL PROFILE AND INDICATIONS Indications: Suspected CAD Heart Failure: None Stress/Imaging Date: 03/31/2019Stress Test with SPECT MPI: Indeterminant (+ symptoms; + ECG celaya es; no obvious myocardial perfusion changes) Angina Classification Anginal Classification w/in 2 Weeks: CCS III CAD Presentations: Stable angina. Other: chest pain / shortness of breath with exertion CONCLUSIONS Elevated Left Ventricular End Diastolic Pressure (mild) Normal LV size, wall motion,and systolic function LVEF: by LV gram 60 % [place] Multivessel CAD (non angiographically significant) RECOMMENDATIONS Risk factor modification Medical therapy DESCRIPTION OF PROCEDURE The patient arrived to the procedure lab. The risks and benefits of the procedure as well as a full d escription of our services here and current unavailability of surgical backup were fully explained to the patient and/or their significant other prior to the catheterization. The Timeout was completed, verifying the correct patient and procedure. The patient's procedural site was prepped and draped in the usual fashion. Local anesthetic was given subcutaneously to right groin region with Lidocaine 2%. Using a modified Seldinger technique, arterial access was obtained via the right femoral artery, a 4 Fr sheath was inserted Left Coronary Artery selective angiography was performed in multiple views us ing a 4 Fr. JL5 catheter. Right Coronary Artery selective angiography was then performed in multiple views using a 4 Fr. 3DRC catheter. Left Ventriculography was performed in BERNABE projection using a 4 Fr . Pigtail catheter. LV to AO pullback pressures were then recorded.The arterial sheath was pulled and manual compression applied until hemostasis is achieved. CORONARY ANGIOGRAPHY DOMINANCE: Right Dominant LEFT HEART ASSESSMENT Left Ventricular Ejection Fraction: by LV Gram 60 % Normal LV wall motion Elevated Left Ventricular End Diastolic Pressure LVEDP: 14 mmHg LEFT MAIN: Angiographically normal LEFT ANTERIOR DESCENDING ARTERY: PROX LAD: eccentric: 10 - 25 % Stenosis CIRCUMFLEX ARTERY: PROX CIRC: Mild luminal irregularities RIGHT CORONARY ARTERY: MID RCA: Mild luminal irregularities AORTIC ROOT: Angiographically normal COMPLICATIONS No Complications PROCEDURE MEDICATIONS Versed 1 mg IV Oxygen: 2 L/min via nasal cannula Baby Aspirin (81mg) 1 Tabs PO @ 04/11/2019 08:11:11 SUMMARY OF HEMODYNAMIC DATA Time AIR REST ECG 08:09:09 AO 139/51 (86) SA 08:45:04 LV 127/-9, 19 08:59:18 LV 125/-10, 14 08:59:24 LV 124/-4, 19 09:00:15 LV 124/-7, 16 09:00:21 LVp 121/-4, 20 09:00:33 AOp 125/63 (88) 09:00:39 Signed By Alejandro Gomes MD On 04/11/2019 09:36:11 Alejandro Gomes MD
== END 2019-04-11 13:30 | disposition home or self-care (01) ==
LOC: CLSP 07:49
PROVIDERS: Family Provider Family Medicine; PCP Family Medicine; Referring Provider Internal Medicine Cardiovascular Disease; Visit Provider Internal Medicine Cardiovascular Disease
DX: I25.118 Atherosclerotic heart disease of native coronary artery with other forms of angina pectoris (principal); R94.39 Abnormal result of other cardiovascular function study; I10 Essential (primary) hypertension; G47.33 Obstructive sleep apnea (adult) (pediatric); Z79.02 Long term (current) use of antithrombotics/antiplatelets; Z79.82 Long term (current) use of aspirin; Z79.899 Other long term (current) drug therapy; R00.1 Bradycardia, unspecified
CPT/HCPCS: 36415; 71046; 85610; 85730; 93458; 99152; 99153; J7040; C1769; C1894; Q9967

== ENCOUNTER → 2019-05-08 07:57 | Outpatient (CLI) | payer MEDICARE, SELFPAY ==
[2019-04-26 10:08] VITALS: BMI 30.6
--- NOTE | 2019-05-08 14:16 | PFTCOMP ---
COMPLETE PULMONARY FUNCTION TEST INTERPRETATION Brief HPI: Patient is a 73 year old male, currently under the care of myself, who presents to [facility] for complete pulmonary function tests secondary to diagnosis of dyspnea. Respiratory therapist reports good effort and reproducible results. Interpretation: Forced expiration spirometry shows no large airways obstructive ventilatory defect with an FEV1 of 106% predicted. There is no significant bronchodilator response by strict ATS criteria. Spirograms are of good quality and plateau slowly, indicating slowly emptying areas of the lungs. The respiratory flow volume loop shows a normal pattern. Lung volumes by body plethysmography show a normal total lung capacity at 6.75 L, 108% predicted. All other lung volumes are within normal limits. Diffusion capacity by carbon monoxide is normal at 93% predicted. The airway resistance is normal. No previous pulmonary function tests were available for review. Impression: These pulmonary function tests are within normal limits.
== END ==
PROVIDERS: Family Provider Family Medicine; PCP Family Medicine; Referring Provider Internal Medicine Critical Care Medicine; Visit Provider Internal Medicine Critical Care Medicine
DX: R06.02 Shortness of breath (principal)
CPT/HCPCS: 94060; 94726; 94729

== ENCOUNTER 2021-09-09 10:06 | Outpatient (CLI) | payer MEDICARE, SELFPAY ==
[2021-09-09 10:24] LABS: Lipase 93 U/L (73-393)
== END 2021-09-09 23:59 | disposition home or self-care (01) ==
LOC: LABSPEC 10:08
PROVIDERS: PCP Family Medicine; Referring Provider Physician Assistant; Visit Provider Physician Assistant
DX: R11.10 Vomiting, unspecified (principal); R19.7 Diarrhea, unspecified
CPT/HCPCS: 83690

== ENCOUNTER 2025-04-16 16:42 | Emergency (ER) | payer MEDICARE, SELFPAY ==
[2025-04-16 16:43] VITALS: BP 159/87; PULSE 84; RESP 20; TEMP 36.9; O2SAT 100; BMI 25.2
--- NOTE | 2025-04-16 17:30 | CT_ITS ---
EXAM: CT/Brain/Head without Contrast
--- NOTE | 2025-04-16 17:30 | CT_ITS ---
EXAM: CT/Spine Cervical without Contras
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
[2025-04-16 17:42] VITALS: BP 145/98; PULSE 87; RESP 16
--- NOTE | 2025-04-16 17:52 | RAD_ITS ---
PROCEDURE: RAD/Pelvis 1 or 2 Views
--- NOTE | 2025-04-16 17:52 | RAD_ITS ---
PROCEDURE: RAD/Femur Min 2 Views
--- NOTE | 2025-04-16 17:52 | RAD_ITS ---
PROCEDURE: RAD/Hand Min 3 Views
[2025-04-16] MEDS: Lidocaine 1% (20 ml mdv) 20 ML Vial INFILT (18:19)
[2025-04-16 19:10] VITALS: BP 130/64; PULSE 82; RESP 20; TEMP 36.8; O2SAT 96
== END 2025-04-16 19:24 | disposition home or self-care (01) ==
PROVIDERS: Emergency Provider Emergency Medicine; PCP Family Medicine; Visit Provider Emergency Medicine
DX: S01.01XA Laceration without foreign body of scalp, initial encounter (principal); E11.9 Type 2 diabetes mellitus without complications; S06.0X0A Concussion without loss of consciousness, initial encounter; R11.0 Nausea; E78.5 Hyperlipidemia, unspecified; M79.605 Pain in left leg; S60.221A Contusion of right hand, initial encounter; I10 Essential (primary) hypertension; Y08.02XA Assault by strike by baseball bat, initial encounter; Z79.899 Other long term (current) drug therapy; Z90.49 Acquired absence of other specified parts of digestive tract
CPT/HCPCS: 12002; 70450; 72125; 72170; 73130; 73552; 99284; J2405